=== PATIENT | male | born 1955 | race Caucasian/White ===

== ENCOUNTER 2019-06-26 16:09 | Inpatient (IN) ==
[2019-06-26] MEDS ORDERED: 0.9 % Sodium Chloride 1,000 ML IVC ONE (16:21)
--- NOTE | 2019-06-26 16:24 | Emergency Department Note ---
Disposition Clinical Impression: Light-headed, Hyponatremia, Occasional tremors Altered mental status Qualifiers: Altered mental status type: unspecified Qualified Code(s): R41.82 - Altered mental status, unspecified Disposition: Admitted As Inpatient [facility] Care Provider[facility] - Time of Disposition: 20:28 General Adult HPI - General Stated complaint: dizziness Time Seen by Provider: 06/26/19 16:13 Source: patient, EMS Mode of arrival: EMS Limitations: no limitations Nursing Notes Reviewed: Yes Vital Signs Reviewed: Yes - History of Present Illness HPI Narrative: Patient is a 63-year-old male with a past medical history including bipolar disorder on lithium, resting tremors, presenting with chief complaint of lightheadedness. The patient states presently 30 minutes prior to arrival, he got up from sitting outside and felt lightheaded. He felt like he is going to pass out and he tripped and fell. He hit his face on the ground. He denies loss of consciousness or blacking out. He has an abrasion to the right upper lip. He denies any chest pain, shortness of breath, abdominal pain, nausea or vomiting, fevers or chills, recent illnesses. He has tremors of bilateral upper extremities and states that has been going on for several years. He denies any anticoagulation use. Denies vision changes, headaches, unilateral weakness or numbness. Denies fevers, cough. - Related Data Home Medications Medication Instructions Recorded Confirmed Aspirin Enteric Coated [Aspirin EC] 81 mg PO DAILY 06/26/19 06/26/19 Cholecalciferol (D-3) [Vitamin D] 1,000 unit PO DAILY 06/26/19 06/26/19 Docusate [Colace] 100 mg PO BID 06/26/19 06/26/19 [place] Carbonate ER [Eskalith] 900 mg PO HS 06/26/19 06/26/19 [place] Carbonate ER [Lithobid] 300 mg PO DAILY 06/26/19 06/26/19 Metoprolol [Lopressor] 12.5 mg PO BID 06/26/19 06/26/19 Omeprazole [PriLOSEC] 20 mg PO BIDAC 06/26/19 06/26/19 Pravastatin Sodium [Pravachol] 40 mg PO QPM 06/26/19 06/26/19 Pyridoxine HCl [Vitamin B-6] 50 mg PO QAM 06/26/19 06/26/19 RisperiDONE MICROSPHERES 37.5 mg IM Q2W 06/26/19 06/26/19 [RisperDAL CONSTA] Vitamin E 400 unit PO QAM 06/26/19 06/26/19 Allergies Allergy/AdvReac Type Severity Reaction Status Date / Time No Known Allergies Allergy Verified 06/26/19 16:46 All systems ED: reviewed and negative except as stated. Review of Systems: As Per HPI Constitutional: Denies: fever, chills Eyes: Denies: vision change Cardiovascular: Reports: other (Lightheaded). Denies: chest pain, palpitations Respiratory: Denies: cough, dyspnea Gastrointestinal: Denies: abdominal pain, nausea, vomiting, diarrhea Musculoskeletal: Denies: back pain, neck pain Neurological: Denies: headache, weakness, numbness Past Medical History - Past Medical History Attestation: Yes The following information was validated with the patient. Source: patient Medical history: Reports: no medical history Psychiatric history: Reports: other (Bipolar disorder) - Social History Alcohol use: Reports: none Drug use: Reports: none Physical Exam - General Limitations: no limitations General appearance: alert, in no apparent distress - Head Head exam: atraumatic, normocephalic - Eye Eye exam: Present: normal appearance, PERRL, EOMI. Absent: nystagmus - ENT ENT exam: normal exam, normal oropharynx - Neck Neck exam: Present: normal inspection, trachea midline - Chest Chest inspection: Present: normal inspection, symmetric chest wall rise - Respiratory Respiratory exam: Present: normal lung sounds bilaterally. Absent: respiratory distress, wheezes - Cardiovascular Cardiovascular exam: Present: regular rate, normal rhythm, normal heart sounds - Abdominal Exam Abdominal exam: Present: soft, Non-Tender. Absent: distention - Extremities Exam Extremities exam: Present: full ROM, normal capillary refill, other (Resting tremors and shakes of bilateral upper extremities and opening and closing of the mouth intermittently). Absent: tenderness, pedal edema, calf tenderness - Neurological Exam Neurological exam: Present: alert, oriented X3, CN II-XII intact. Absent: motor sensory deficit - Expanded Neurological Exam Speech: Present: fluid speech Motor strength - LUE: 5/5 Motor strength - RUE: 5/5 Motor strength - LLE: 5/5 Motor strength - RLE: 5/5 Upper motor neuron exam: jim neglect: Absent bilaterally, pronator drift: Absent bilaterally Sensory exam upper extremity: light touch: Normal Sensory exam lower extremity: light touch: Normal - Psychiatric Psychiatric exam: Present: normal affect, normal mood - Skin Skin exam: Present: warm, dry Course Vital Signs Temperature 0 F L 06/26/19 16:18 Pulse Rate 119 06/26/19 16:18 Respiratory Rate 16 06/26/19 16:18 Blood Pressure 155/106 06/26/19 16:18 O2 Sat by Pulse Oximetry 96 06/26/19 16:18 Temperature 0 F L 06/26/19 16:18 Pulse Rate 119 06/26/19 16:18 Respiratory Rate 16 06/26/19 16:18 Blood Pressure 155/106 06/26/19 16:18 O2 Sat by Pulse Oximetry 96 06/26/19 16:18 Oxygen Delivery Oxygen Delivery Room Air Medical Decision Making - MDM Narrative Medical decision making narrative: Patient is presenting with near syncope and collapse, no loss of consciousness about 30 minutes prior to arrival. He appears dehydrated, he is mildly tachycardic, we will give him a liter of IV fluid bolus. EKG shows no acute ischemic changes. He does take lithium and we will obtain a lithium level. We will obtain electrolytes, evaluate for sources of infection, chest x-ray, CT head and cervical spine as he did hit his face on the ground without any facial tenderness or deformity. He is a mild abrasion above the right side of his upper lip below the right nostril but no active epistaxis. No loose teeth or missing teeth. He also obtain urinalysis, urine drug screen, acetaminophen, salicylate, ethanol levels, VBG, ammonia level as he does appear somewhat confused at times. He does live alone and do not know what his baseline mental status is. He is AAOx3. Patient also states he has had his tremors for several years however told Dr Ferrer that tremors started after his fall. 17:00 Patient was standing in the hallway nude. He also has increased so we will give him some Ativan prior to CT scan. 17:30 Sodium is low at 119. [place] level low. BUN/Cr within normal limits. Hyponatremia may be related to terminal carman lithium use. 19:30 CT head shows no acute intracranial abnormality. The rest of the labs reviewed. No signs of infectious etiology. Discussed with pharmacyMaurizio. He states that lithium would not cause that profound hyponatremia. Patient denies consuming much water. [place] can cause nephrogenic diabetes insipidus. Patient no longer shaking at this time. Possibility of SIADH as patient has been urinating much as well. Hospitalist paged for admission. Patient is also on risperidone which may cause SIADH as well discussing with Dr. Soriano, hospitalist who accepts admission at 20:25 - Medical Records Medical records reviewed: Yes I reviewed the patient's medical records. - Lab Data Lab results reviewed: Yes I reviewed the patient's lab results. Result diagrams: 06/26/19 16:35 06/26/19 16:35 Lab Results 06/26/19 06/26/19 06/26/19 Range/Units 16:29 16:35 16:35 WBC 14.0 H (4.3-11.1) K/mcL RBC 4.14 L (4.19-5.50) M/mcL Hgb 12.9 (12.9-16.9) g/dL Hct 37.4 L (37.5-50.1) % MCV 90.3 (83.0-100.0) fL MCH 31.2 (28.0-33.3) pg MCHC 34.5 (31.6-35.5) g/dL RDW 13.5 (11.5-14.5) % Plt Count 258 (140-400) K/mcL MPV 8.2 L (9.4-12.4) fL Immature Gran % 0.6 (0-4) % Seg Neutrophils % 79.8 % Lymphocytes % 12.0 % Monocytes % 6.7 % Eosinophils % 0.6 % Basophils % 0.3 % Neutrophils # 11.2 H (1.6-8.9) K/mcL Lymphocytes # 1.7 (0.6-4.6) K/mcL Monocytes # 0.9 (0.0-1.3) K/mcL Eosinophils # 0.1 (0.0-0.6) K/mcL Basophils # 0.0 (0.0-0.2) K/mcL ABG pH (7.32-7.45) pH Units ABG pCO2 (35-45) mmHg ABG pO2 (85-104) mmHg ABG HCO3 (21-27) mEq/L ABG Total CO2 (20-26) mEq/L ABG O2 Saturation (95-98) % ABG Base Excess (-2 to 3) mEq/L VBG pH (7.32-7.42) pH Units VBG pCO2 (41-51) mmHg VBG pO2 (25-50) mmHg VBG HCO3 (21-27) mEq/L O2 Delivery Device Inspired O2 (1-15=lpm [id number]=%) Sodium 119 L* (136-145) mEq/L Potassium 3.8 (3.5-5.1) mEq/L Chloride 87 L (98-107) mEq/L Carbon Dioxide 20 L (23-29) mEq/L BUN 12 (8-23) mg/dL Creatinine 0.81 (0.70-1.30) mg/dL Est GFR ( Amer) > 60 (> 60) Est GFR (Non-Af Amer) > 60 (> 60) BUN/Creatinine Ratio 15 (6-26) Glucose 91 (70-105) mg/dL POC Glucose (70-99) mg/dL Calculated Osmolality 247 L (280-300) Calcium 8.6 (8.6-10.3) mg/dL Magnesium 1.3 L (1.6-2.6) mg/dL Total Bilirubin 0.4 (0.3-1.0) mg/dL Direct Bilirubin 0.1 (0.0-0.2) mg/dL Indirect Bilirubin 0.3 (0.0-1.2) mg/dL AST 42 H (13-39) Units/L ALT 26 (7-52) Units/L Alkaline Phosphatase 48 (34-104) Units/L Ammonia (16-53) mcmol/L Creatine Kinase 2904 H (30-223) Units/L Troponin I < 0.03 (< 0.04) ng/mL Serum Total Protein 6.5 (6.4-8.9) g/dL Albumin 4.3 (3.5-5.7) g/dL Globulin 2.2 L (2.4-3.5) g/dL Albumin/Globulin Ratio 2.0 (1.1-2.2) TSH (0.340-5.600) mcIU/mL Urine Color Yellow (Yellow) Urine Clarity Clear (Clear) Urine pH 6.5 (5.0-8.0) pH Units Ur Specific [place] 1.008 L (1.010-1.025) Urine Protein Negative (Neg-Trace) mg/dL Urine Glucose (UA) Normal (Normal) mg/dL Urine Ketones Negative (Negative) mg/dL Urine Blood Negative (Negative) Urine Nitrite Negative (Negative) Urine Bilirubin Negative (Negative) Urine Urobilinogen Normal (Normal) mg/dL Ur Leukocyte Esterase Negative (Negative) Ur Culture Indicated? NO (NO) Urine Osmolality (300-1090) mOsm/kg Urine Creatinine mg/dL Urine Sodium mEq/L Salicylates < 2.5 L (15.0-30.0) mg/dL Urine Opiates Screen (Dqybuo=851) ng/mL Ur Buprenorphine Scrn (Cutoff=5) ng/mL Acetaminophen < 10 L (10-20) mcg/mL Ur Barbiturates Screen (Frbuep=223) ng/mL Ur Phencyclidine Scrn (Cutoff=25) ng/mL Ur Amphetamines Screen (Doqbgq=9072) ng/mL U Benzodiazepines Scrn (Iammut=141) ng/mL [place] (0.6-1.2) mEq/L Urine Cocaine Screen (Cutoff= 300) ng/mL U Marijuana (THC) Screen (Cutoff = 50) ng/mL Ur Drug Screen Interp Ethyl Alcohol < 10 (Less than 10) mg/dL 06/26/19 06/26/19 06/26/19 Range/Units 16:35 16:49 17:12 WBC (4.3-11.1) K/mcL RBC (4.19-5.50) M/mcL Hgb (12.9-16.9) g/dL Hct (37.5-50.1) % MCV (83.0-100.0) fL MCH (28.0-33.3) pg MCHC (31.6-35.5) g/dL RDW (11.5-14.5) % Plt Count (140-400) K/mcL MPV (9.4-12.4) fL Immature Gran % (0-4) % Seg Neutrophils % % Lymphocytes % % Monocytes % % Eosinophils % % Basophils % % Neutrophils # (1.6-8.9) K/mcL Lymphocytes # (0.6-4.6) K/mcL Monocytes # (0.0-1.3) K/mcL Eosinophils # (0.0-0.6) K/mcL Basophils # (0.0-0.2) K/mcL ABG pH 7.41 (7.32-7.45) pH Units ABG pCO2 26 L (35-45) mmHg ABG pO2 101 (85-104) mmHg ABG HCO3 17 L (21-27) mEq/L ABG Total CO2 17 L (20-26) mEq/L ABG O2 Saturation 98 (95-98) % ABG Base Excess -7 L (-2 to 3) mEq/L VBG pH (7.32-7.42) pH Units VBG pCO2 (41-51) mmHg VBG pO2 (25-50) mmHg VBG HCO3 (21-27) mEq/L O2 Delivery Device Cannula Inspired O2 2.0 (1-15=lpm [id number]=%) Sodium (136-145) mEq/L Potassium (3.5-5.1) mEq/L Chloride (98-107) mEq/L Carbon Dioxide (23-29) mEq/L BUN (8-23) mg/dL Creatinine (0.70-1.30) mg/dL Est GFR ( Amer) (> 60) Est GFR (Non-Af Amer) (> 60) BUN/Creatinine Ratio (6-26) Glucose (70-105) mg/dL POC Glucose 97 (70-99) mg/dL Calculated Osmolality (280-300) Calcium (8.6-10.3) mg/dL Magnesium (1.6-2.6) mg/dL Total Bilirubin (0.3-1.0) mg/dL Direct Bilirubin (0.0-0.2) mg/dL Indirect Bilirubin (0.0-1.2) mg/dL AST (13-39) Units/L ALT (7-52) Units/L Alkaline Phosphatase (34-104) Units/L Ammonia (16-53) mcmol/L Creatine Kinase (30-223) Units/L Troponin I (< 0.04) ng/mL Serum Total Protein (6.4-8.9) g/dL Albumin (3.5-5.7) g/dL Globulin (2.4-3.5) g/dL Albumin/Globulin Ratio (1.1-2.2) TSH (0.340-5.600) mcIU/mL Urine Color (Yellow) Urine Clarity (Clear) Urine pH (5.0-8.0) pH Units Ur Specific [place] (1.010-1.025) Urine Protein (Neg-Trace) mg/dL Urine Glucose (UA) (Normal) mg/dL Urine Ketones (Negative) mg/dL Urine Blood (Negative) Urine Nitrite (Negative) Urine Bilirubin (Negative) Urine Urobilinogen (Normal) mg/dL Ur Leukocyte Esterase (Negative) Ur Culture Indicated? (NO) Urine Osmolality (300-1090) mOsm/kg Urine Creatinine mg/dL Urine Sodium mEq/L Salicylates (15.0-30.0) mg/dL Urine Opiates Screen (Kwexlo=036) ng/mL Ur Buprenorphine Scrn (Cutoff=5) ng/mL Acetaminophen (10-20) mcg/mL Ur Barbiturates Screen (Gfafdz=767) ng/mL Ur Phencyclidine Scrn (Cutoff=25) ng/mL Ur Amphetamines Screen (Qaypxp=6338) ng/mL U Benzodiazepines Scrn (Kqzesn=891) ng/mL [place] 0.4 L (0.6-1.2) mEq/L Urine Cocaine Screen (Cutoff= 300) ng/mL U Marijuana (THC) Screen (Cutoff = 50) ng/mL Ur Drug Screen Interp Ethyl Alcohol (Less than 10) mg/dL 06/26/19 06/26/19 06/26/19 Range/Units 18:02 18:02 18:02 WBC (4.3-11.1) K/mcL RBC (4.19-5.50) M/mcL Hgb (12.9-16.9) g/dL Hct (37.5-50.1) % MCV (83.0-100.0) fL MCH (28.0-33.3) pg MCHC (31.6-35.5) g/dL RDW (11.5-14.5) % Plt Count (140-400) K/mcL MPV (9.4-12.4) fL Immature Gran % (0-4) % Seg Neutrophils % % Lymphocytes % % Monocytes % % Eosinophils % % Basophils % % Neutrophils # (1.6-8.9) K/mcL Lymphocytes # (0.6-4.6) K/mcL Monocytes # (0.0-1.3) K/mcL Eosinophils # (0.0-0.6) K/mcL Basophils # (0.0-0.2) K/mcL ABG pH (7.32-7.45) pH Units ABG pCO2 (35-45) mmHg ABG pO2 (85-104) mmHg ABG HCO3 (21-27) mEq/L ABG Total CO2 (20-26) mEq/L ABG O2 Saturation (95-98) % ABG Base Excess (-2 to 3) mEq/L VBG pH (7.32-7.42) pH Units VBG pCO2 (41-51) mmHg VBG pO2 (25-50) mmHg VBG HCO3 (21-27) mEq/L O2 Delivery Device Inspired O2 (1-15=lpm or71-925=%) Sodium (136-145) mEq/L Potassium (3.5-5.1) mEq/L Chloride (98-107) mEq/L Carbon Dioxide (23-29) mEq/L BUN (8-23) mg/dL Creatinine (0.70-1.30) mg/dL Est GFR ( Amer) (> 60) Est GFR (Non-Af Amer) (> 60) BUN/Creatinine Ratio (6-26) Glucose (70-105) mg/dL POC Glucose (70-99) mg/dL Calculated Osmolality (280-300) Calcium (8.6-10.3) mg/dL Magnesium (1.6-2.6) mg/dL Total Bilirubin (0.3-1.0) mg/dL Direct Bilirubin (0.0-0.2) mg/dL Indirect Bilirubin (0.0-1.2) mg/dL AST (13-39) Units/L ALT (7-52) Units/L Alkaline Phosphatase (34-104) Units/L Ammonia (16-53) mcmol/L Creatine Kinase (30-223) Units/L Troponin I (< 0.04) ng/mL Serum Total Protein (6.4-8.9) g/dL Albumin (3.5-5.7) g/dL Globulin (2.4-3.5) g/dL Albumin/Globulin Ratio (1.1-2.2) TSH (0.340-5.600) mcIU/mL Urine Color (Yellow) Urine Clarity (Clear) Urine pH (5.0-8.0) pH Units Ur Specific [place] (1.010-1.025) Urine Protein (Neg-Trace) mg/dL Urine Glucose (UA) (Normal) mg/dL Urine Ketones (Negative) mg/dL Urine Blood (Negative) Urine Nitrite (Negative) Urine Bilirubin (Negative) Urine Urobilinogen (Normal) mg/dL Ur Leukocyte Esterase (Negative) Ur Culture Indicated? (NO) Urine Osmolality 82 L (300-1090) mOsm/kg Urine Creatinine 13 mg/dL Urine Sodium 12.9 mEq/L Salicylates (15.0-30.0) mg/dL Urine Opiates Screen Negative (Pylujd=179) ng/mL Ur Buprenorphine Scrn Negative (Cutoff=5) ng/mL Acetaminophen (10-20) mcg/mL Ur Barbiturates Screen Negative (Krqdeu=502) ng/mL Ur Phencyclidine Scrn Negative (Cutoff=25) ng/mL Ur Amphetamines Screen Negative (Pztbiy=2320) ng/mL U Benzodiazepines Scrn Negative (Mdsgbg=761) ng/mL [place] (0.6-1.2) mEq/L Urine Cocaine Screen Negative (Cutoff= 300) ng/mL U Marijuana (THC) Screen Negative (Cutoff = 50) ng/mL Ur Drug Screen Interp See Below Ethyl Alcohol (Less than 10) mg/dL 06/26/19 06/26/19 06/26/19 Range/Units 18:06 18:06 18:18 WBC (4.3-11.1) K/mcL RBC (4.19-5.50) M/mcL Hgb (12.9-16.9) g/dL Hct (37.5-50.1) % MCV (83.0-100.0) fL MCH (28.0-33.3) pg MCHC (31.6-35.5) g/dL RDW (11.5-14.5) % Plt Count (140-400) K/mcL MPV (9.4-12.4) fL Immature Gran % (0-4) % Seg Neutrophils % % Lymphocytes % % Monocytes % % Eosinophils % % Basophils % % Neutrophils # (1.6-8.9) K/mcL Lymphocytes # (0.6-4.6) K/mcL Monocytes # (0.0-1.3) K/mcL Eosinophils # (0.0-0.6) K/mcL Basophils # (0.0-0.2) K/mcL ABG pH (7.32-7.45) pH Units ABG pCO2 (35-45) mmHg ABG pO2 (85-104) mmHg ABG HCO3 (21-27) mEq/L ABG Total CO2 (20-26) mEq/L ABG O2 Saturation (95-98) % ABG Base Excess (-2 to 3) mEq/L VBG pH 7.40 (7.32-7.42) pH Units VBG pCO2 34 L (41-51) mmHg VBG pO2 126 H (25-50) mmHg VBG HCO3 21 (21-27) mEq/L O2 Delivery Device Inspired O2 (1-15=lpm hs92-297=%) Sodium (136-145) mEq/L Potassium (3.5-5.1) mEq/L Chloride (98-107) mEq/L Carbon Dioxide (23-29) mEq/L BUN (8-23) mg/dL Creatinine (0.70-1.30) mg/dL Est GFR ( Amer) (> 60) Est GFR (Non-Af Amer) (> 60) BUN/Creatinine Ratio (6-26) Glucose (70-105) mg/dL POC Glucose (70-99) mg/dL Calculated Osmolality (280-300) Calcium (8.6-10.3) mg/dL Magnesium (1.6-2.6) mg/dL Total Bilirubin (0.3-1.0) mg/dL Direct Bilirubin (0.0-0.2) mg/dL Indirect Bilirubin (0.0-1.2) mg/dL AST (13-39) Units/L ALT (7-52) Units/L Alkaline Phosphatase (34-104) Units/L Ammonia 35 (16-53) mcmol/L Creatine Kinase (30-223) Units/L Troponin I (< 0.04) ng/mL Serum Total Protein (6.4-8.9) g/dL Albumin (3.5-5.7) g/dL Globulin (2.4-3.5) g/dL Albumin/Globulin Ratio (1.1-2.2) TSH 0.371 (0.340-5.600) mcIU/mL Urine Color (Yellow) Urine Clarity (Clear) Urine pH (5.0-8.0) pH Units Ur Specific [place] (1.010-1.025) Urine Protein (Neg-Trace) mg/dL Urine Glucose (UA) (Normal) mg/dL Urine Ketones (Negative) mg/dL Urine Blood (Negative) Urine Nitrite (Negative) Urine Bilirubin (Negative) Urine Urobilinogen (Normal) mg/dL Ur Leukocyte Esterase (Negative) Ur Culture Indicated? (NO) Urine Osmolality (300-1090) mOsm/kg Urine Creatinine mg/dL Urine Sodium mEq/L Salicylates (15.0-30.0) mg/dL Urine Opiates Screen (Sxrgtv=966) ng/mL Ur Buprenorphine Scrn (Cutoff=5) ng/mL Acetaminophen (10-20) mcg/mL Ur Barbiturates Screen (Qvyznt=584) ng/mL Ur Phencyclidine Scrn (Cutoff=25) ng/mL Ur Amphetamines Screen (Vflsbz=3843) ng/mL U Benzodiazepines Scrn (Yjvrbh=279) ng/mL [place] (0.6-1.2) mEq/L Urine Cocaine Screen (Cutoff= 300) ng/mL U Marijuana (THC) Screen (Cutoff = 50) ng/mL Ur Drug Screen Interp Ethyl Alcohol (Less than 10) mg/dL - Radiology Data Radiology results reviewed: Yes I reviewed the patient's radiology results. Chest X-Ray 06/26/19 17:20 IMPRESSION: Low lung volumes with bibasilar atelectasis. PA and lateral chest x-ray will be helpful for further evaluation. D/ / 06/26/2019 17:24:29 Roger Flores MD / Sari Grier Interpreting Provider: Roger Flores MD Cervical Spine CT 06/26/19 19:07 IMPRESSION: No acute abnormality of the cervical spine. Multilevel degenerative changes D/ / Jose Carlos Freedman MD / Jose Carlos Freedman MD Interpreting Provider: Jose Carlos Freedman MD Head CT 06/26/19 19:09 IMPRESSION: No acute intracranial abnormality. D/ / Nelson Allen MD / Nelson Allen MD Interpreting Provider: Nelson Allen MD - EKG Data EKG #1 EKG attestation: Yes I reviewed and interpreted this EKG. EKG results narrative: Poor baseline as the patient is tremulous. EKG was obtained at 1628 shows heart rate 101, QRS duration 106, QTC 464, sinus rhythm, normal access, no ST elevation, no ST depression, no old EKG to compare to. Attestation Statement - Attestation Attestation: I have seen this patient with the resident physician, I have personally evaluated this patient. I had reviewed the chart and document dictation by the resident physician and aM in agreement with the information documented by the resident physician. Please see documentation by the resident physician for complete chart including past medical history, family medical history, review of systems, current history and physical and laboratory and imaging studies. I was present for all procedures, provided direct supervision for all pr ocedures, was present for the entirety of all procedures and provided direct guidance during the procedures. Please see documentation by the resident physician for any procedures performed. I have reviewed all interpretations of EKGs, and reviewed all EKGs performed on patient's as well. I have also reviewed reports of imaging as provided by radiology. Patient presented emergency department with chief complaint of a near-syncopal event that started today. He states he has been otherwise at his baseline health. He does have a history of bipolar disorder but reports no medication changes, he reports she has been eating and drinking without difficulty he denies alcohol use. He states that he stood up at home today also and felt dizzy lightheaded like he was given a pass out, initially told the resident physician that he has chronic problems with a tremor, seems to deny chronic problems with a tremor to myself but endorses significant tremor since this event in the bilateral upper extremities, on repeat discussion with the patient seems to endorse that the tremor in the bilateral upper extremities is just worse than his baseline but is a poor historian in regards to this. He states that when he fell he did hit his head and landed on his right leg and his face he does not believe he was actually knocked out he denies experiencing seizure. He denies biting his tongue. He does endorse urinary frequency no other urinary symptoms he denies any pain at all. Denies chest pain shortness of breath. Denies palpitations denies abdominal pain nausea vomiting diarrhea black or b loody stool. Apart from some slight increased urination denies any other urinary symptoms denies hematuria denies unilateral numbness or weakness. States that he has never had this happen to him in the past. Reviewing his chart he has never been here before. He does typically get some care at the [place], unable to obtain any old records. Patient does report he is on lithium for bipolar disorder, but again endorses no recent changes in his medication. Denies nausea or vomiting denies headache or confusion. 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 He has an abrasion to his right upper lip region no other evidence of trauma to his head pupils are normal no midline tenderness of his cervical spine. Lungs are clear heart is regular although tachycardic, no murmurs rubs or gallops abdomen is soft and nontender. Skin is warm and dry without rash or petechiae neurologic exam is nonfocal, although he does have bilateral upper extremity tremor, but with improvement with intention. He does not have asterixis. He is able to get up and walk around. He although oriented, does not seem somewhat confused, he gets up and urinates on the floor, and walks in the hallway naked, is redirected back to his room, cannot totally really why he was doing that. He was given some Ativan for his tremor as well as for his behavior control. Patient had an IV placed he was given a bolus of IV fluids for tachycardia. Head CT showed no evidence of acute intra-cranial pathology chest x-ray showed no acute findings as interpreted by radiology. EKG was normal sinus rhythm with sinus tachycardia no evidence of acute ischemic dysrhythmia or hyperkalemia, heart rate was 101. CBC is within acceptable limits. Renal panel demonstrates hyponatremia 119, no other significant O like disturbance apart from hypomagnesemia 1.3 he was again given IV fluids a liter initially, followed by maintenance fluids, also given magnesium. The patient had a lithium level checked which was 0.4, no evidence of lithium toxicity. Patient continued to have significant frequent urination, I am concerned with the elevated amount of urination, with a low sodium that he may have some sort of SIADH, reviewed his medication list with pharmacy, does not appear that lithium should cause this you can get lithium toxicity from hyponatremia, but not typically hyponatremia from lithium, in fact lithium often more associated with diabetes insipidus and hypernatremia. Patient was admitted to the hospital for further evaluation and management, I did also check a total CPK which was mildly elevated at 2900 but no evidence of renal failure, this may be related to the fall itself. I did also check a TSH which showed no evidence to suggest acute thyroid abnormality. Total critical care time as provided by myself excluding any procedures performed evaluation and management of this patient was 30 minutes.
[2019-06-26 16:49] LABS: Bilirubin,Urine Negative (Negative); Blood,Urine Negative (Negative); Clarity,Urine Clear (Clear); Color,Urine Yellow (Yellow); Glucose,Urine (UA) Normal (Normal); Ketones,Urine Negative (Negative); Leukocyte Esterase,Urine Negative (Negative); Nitrite,Urine Negative (Negative); PH,Urine 6.5 pH Units (5.0-8.0); Protein,Urine Negative (Neg-Trace); Specific Gravity,Urine 1.008 (1.010-1.025); Urobilinogen,Urine Normal (Normal)
[2019-06-26 16:51] LABS: Basophils % 0.3 %; Eosinophils # 0.1 K/mcL (0.0-0.6); Eosinophils % 0.6 %; Hematocrit 37.4 % (37.5-50.1); Hemoglobin 12.9 g/dL (12.9-16.9); Immature Granulocytes % 0.6 % (0-4); Lymphocytes # 1.7 K/mcL (0.6-4.6); Mean Corpuscular HGB Conc 34.5 g/dL (31.6-35.5); Mean Corpuscular Hemoglobin 31.2 pg (28.0-33.3); Mean Corpuscular Volume 90.3 fL (83.0-100.0); Mean Platelet Volume 8.2 fL (9.4-12.4); Monocytes # 0.9 K/mcL (0.0-1.3); Monocytes % 6.7 %; Neutrophils # 11.2 K/mcL (1.6-8.9); Platelet Count 258 K/mcL (140-400); Red Blood Count 4.14 M/mcL (4.19-5.50); Red Cell Distribution Width 13.5 % (11.5-14.5); Segmented Neutrophils % 79.8 %
[2019-06-26] MEDS ORDERED: *HR* LORazepam 2 MG/ML VIAL IVP ONE ×2 (17:02→18:46)
[2019-06-26 17:14] LABS: ABG Base Excess -7 mEq/L (-2 to 3); ABG HCO3 17 mEq/L (21-27); ABG Oxygen Saturation 98 % (95-98); ABG PCO2 26 mmHg (35-45); ABG PH 7.41 pH Units (7.32-7.45); ABG PO2 101 mmHg (85-104); ABG TCO2 17 mEq/L (20-26)
[2019-06-26 17:33] LABS: BUN/Creatinine Ratio 15 (6-26); Blood Urea Nitrogen 12 mg/dL (8-23); Calcium 8.6 mg/dL (8.6-10.3); Carbon Dioxide 20 mEq/L (23-29); Chloride 87 mEq/L (98-107); Glucose 91 mg/dL (70-105); Osmolality,Calculated 247 (280-300); Potassium 3.8 mEq/L (3.5-5.1); Sodium 119 mEq/L (136-145); Troponin I < 0.03 ng/mL (< 0.04); eGFR For African Americans > 60 (> 60); eGFR For Non-African Americans > 60 (> 60)
[2019-06-26 18:18] LABS: Acetaminophen < 10 mcg/mL (10-20); Alanine Aminotransferase 26 Units/L (7-52); Albumin 4.3 g/dL (3.5-5.7); Alkaline Phosphatase 48 Units/L (34-104); Aspartate Amino Transferase 42 Units/L (13-39); Bilirubin,Direct 0.1 mg/dL (0.0-0.2); Bilirubin,Indirect 0.3 mg/dL (0.0-1.2); Bilirubin,Total 0.4 mg/dL (0.3-1.0); Ethanol < 10 mg/dL (Less than 10); Globulin 2.2 g/dL (2.4-3.5); Magnesium 1.3 mg/dL (1.6-2.6); Salicylate < 2.5 mg/dL (15.0-30.0); Total Protein 6.5 g/dL (6.4-8.9)
[2019-06-26 18:21] LABS: VBG HCO3 21 mEq/L (21-27); VBG PCO2 34 mmHg (41-51); VBG PO2 126 mmHg (25-50)
[2019-06-26 18:31] LABS: Creatine Kinase 2904 Units/L (30-223)
[2019-06-26] MEDS ORDERED: *HR* LORazepam 2 MG/ML VIAL ONE (18:49)
[2019-06-26 19:25] LABS: Amphetamine Screen,Urine Negative ng/mL (Cutoff=1000); Barbiturate Screen,Urine Negative ng/mL (Cutoff=200); Benzodiazepines Screen,Urine Negative ng/mL (Cutoff=200); Cannabinoid Screen,Urine Negative ng/mL (Cutoff = 50); Cocaine Screen,Urine Negative ng/mL (Cutoff= 300); Opiate Screen,Urine Negative ng/mL (Cutoff=300); Phencyclidine Screen,Urine Negative ng/mL (Cutoff=25)
[2019-06-26] MEDS ORDERED: Magnesium Oxide 400 MG TABLET PO STA (19:33)
[2019-06-26 19:40] LABS: Sodium, Urine 12.9 mEq/L
[2019-06-26] MEDS ORDERED: 0.9 % Sodium Chloride 1,000 ML IVC SCH (19:45)
--- NOTE | 2019-06-26 22:22 | Internal Med History&Physical ---
<Coleman Mitchell - Last Filed: 06/26/19 22:27> Date of Encounter: 06/26/19 Time of Encounter: 22:17 Internal Medicine - H&P: HPI Chief complaint: Presyncopal episode Admitted From: Home Plans for Post Hospital Care: Home History of present illness: Mr. Rabago is a 63 year old male with a past medical history of bipolar disorder with resting tremors at baseline, he takes lithium. Approximately one half hour prior to presentation to the [facility] ED the patient states he stood from a sitting position and became very lightheaded had a presyncopal episodes and tripped and fell forward striking his face on the ground. Patient denies any loss of consciousness or any other trauma during the event, he is noted to have a small abrasion around his nose and upper lip dentition is intact, oropharynx is clear, pupils are PERRL with EOMI, there appears to be no significant trauma to the patient's head. Cardio pulmonary auscultation is unremarkable abdomen soft nontender nondistended, no evidence of peripheral edema pulses are strong in the distal extremities. Patient is noted to have upper extremity bilateral tremors which she states is "a little worse than my baseline." Patient has no other concerns or complaints at this time he states he has no other past medical history medications or known drug allergies. In the ED the patient was noted to have a mildly elevated white count at 14.0, of significant note the patient's sodium level is 119 and his creatinine kinase is 2904. Both his serum and urine osmolality are low at 247 and 82 respectively. Toxicology screen is negative lithium level was noted to be low at 0.4. While in the ED the patient was given 2 L of fluid, he was given a total of 1 mg of Ativan as well as magnesium oxide 400 mg and 1 g of magnesium sulfate. Nephrology has been consulted. I will obtain a stat BMP to determine patient's sodium status after fluid bolus. Assessment and plan: Hyponatremia: Nephrology is consulted and is following Stat BMP after 2 L fluid bolus to assess sodium status. Guarded IV fluid hydration Presyncopal episode with fall: Head/cervical spine CT negative for acute pathology Likely secondary to electrolyte abnormalities EKG noted tests significant artifact is patient is tremulous however no ischemic change noted Troponin is negative Rhabdomyolysis: Creatine kinase is 2904 Patient is received 2 L in the ED Stat repeat BMP and CK DVT prophylaxis: EPCDs Past Med Surg Social Fam HX - Past Medical History Medical history: no medical history Additional medical history: tremors Psychiatric history: other (Bipolar disorder) - Social History Smoking Status: Never smoker Alcohol use: none Drug use: none Internal Medicine - H&P: Meds Aspirin Enteric Coated [Aspirin EC] 81 mg PO DAILY 06/26/19 [History] Cholecalciferol (D-3) [Vitamin D] 1,000 unit PO DAILY 06/26/19 [History] Docusate [Colace] 100 mg PO BID 06/26/19 [History] Brule Carbonate ER [Eskalith] 900 mg PO HS 06/26/19 [History] Brule Carbonate ER [Lithobid] 300 mg PO DAILY 06/26/19 [History] Metoprolol [Lopressor] 12.5 mg PO BID 06/26/19 [History] Omeprazole [PriLOSEC] 20 mg PO BIDAC 06/26/19 [History] Pravastatin Sodium [Pravachol] 40 mg PO QPM 06/26/19 [History] Pyridoxine HCl [Vitamin B-6] 50 mg PO QAM 06/26/19 [History] RisperiDONE MICROSPHERES [RisperDAL CONSTA] 37.5 mg IM Q2W 06/26/19 [History] Vitamin E 400 unit PO QAM 06/26/19 [History] Allergy/AdvReac Type Severity Reaction Status Date / Time No Known Allergies Allergy Verified 06/26/19 16:46 All Systems PM: A 10-system review of systems was performed and is negative for pertinent findings except as documented above in the HPI. - Constitutional Constitutional: falls, weakness - Cardiovascular Cardiovascular ROS IM: lightheadedness, syncope, no chest pain, no dyspnea - Respiratory Respiratory: no dyspnea - Gastrointestinal Gastrointestinal: no abdominal pain, no nausea, no vomiting - Musculoskeletal Musculoskeletal ROS IM: no arthralgias, no myalgias - Neurological Neurological ROS: tremor(s) - Constitutional Vitals: Temp Pulse Resp BP Pulse Ox 97.9 F 87 24 147/73 98 06/26/19 20:33 06/26/19 21:47 06/26/19 21:47 06/26/19 21:47 06/26/19 21:47 General appearance: Present: mild distress, answers questions appropriately Exam: Pulmonary initial examination the patient is sitting upright in hospital bed he is awake, alert, oriented, engaged conversation answering questions appropriately. There is an obvious bilateral upper extremity coarse tremor noted which the patient states is "a little worse than my normal". The patient is also noted to have some minor abrasions around his nose and lips were he states that he struck his face when he fell earlier today. Cardio pulmonary auscultation is unremarkable, abdomen is soft nontender nondistended, good peripheral pulses, no evidence of peripheral edema, no other signs of trauma are noted. - Eye Eye exam: Present: EOMI, normal appearance, PERRL. Absent: conjunctival inject ion, scleral icterus Pupils: Present: PERRL - Respiratory Respiratory exam: Present: CTAB - Cardiovascular Cardiovascular exam: Present: RRR, +S1, +S2. Absent: +S3, +S4 - GI/Abdominal GI/Abdominal exam: Present: normal bowel sounds, soft, no peritoneal signs. Absent: distended, firm, guarding, rebound, rigid, tenderness - Neurological Exam Neurological exam: Present: oriented X3, no focal deficits. Absent: facial droop, speech deficit Internal Med - H&P Results - Labs CBC & Chem 7: 06/26/19 16:35 06/26/19 16:35 Labs: Short CBC 06/26/19 Range/Units 16:35 WBC 14.0 H (4.3-11.1) K/mcL Hgb 12.9 (12.9-16.9) g/dL Hct 37.4 L (37.5-50.1) % Plt Count 258 (140-400) K/mcL Neutrophils # 11.2 H (1.6-8.9) K/mcL BMP 06/26/19 16:35 Sodium 119 L* Potassium 3.8 Chloride 87 L Carbon Dioxide 20 L BUN 12 Creatinine 0.81 Glucose 91 Calcium 8.6 Cardiac Enzymes 06/26/19 Range/Units 16:35 Troponin I < 0.03 (< 0.04) ng/mL Liver Function 06/26/19 Range/Units 16:35 Total Bilirubin 0.4 (0.3-1.0) mg/dL Direct Bilirubin 0.1 (0.0-0.2) mg/dL AST 42 H (13-39) Units/L ALT 26 (7-52) Units/L Alkaline Phosphatase 48 (34-104) Units/L Albumin 4.3 (3.5-5.7) g/dL Urine 06/26/19 Range/Units 16:29 Urine Color Yellow (Yellow) Urine Clarity Clear (Clear) Urine pH 6.5 (5.0-8.0) pH Units Ur Specific [place] 1.008 L (1.010-1.025) Urine Protein Negative (Neg-Trace) mg/dL Urine Glucose (UA) Normal (Normal) mg/dL - ABG Interpretation ABG results: 06/26/19 06/26/19 17:12 18:18 ABG pH 7.41 ABG pCO2 26 L ABG pO2 101 ABG HCO3 17 L ABG Total CO2 17 L ABG O2 Saturation 98 ABG Base Excess -7 L VBG pH 7.40 VBG pCO2 34 L VBG pO2 126 H VBG HCO3 21 - Impressions ITS Impressions Chest X-Ray 06/26/19 17:20 IMPRESSION: Low lung volumes with bibasilar atelectasis. PA and lateral chest x-ray will be helpful for further evaluation. D/ / 06/26/2019 17:24:29 Roger Flores MD / Sari Grier Interpreting Provider: Roger Flores MD Cervical Spine CT 06/26/19 19:07 IMPRESSION: No acute abnormality of the cervical spine. Multilevel degenerative changes D/ / Jose Carlos Freedman MD / Jose Carlos Freedman MD Interpreting Provider: Jose Carlos Freedman MD Head CT 06/26/19 19:09 IMPRESSION: No acute intracranial abnormality. D/ / Nelson Allen MD / Nelson Allen MD Interpreting Provider: Nelson Allen MD - Time Spent With Patient Total time spent is greater than 50% in coordination of care (as documented) at patient's floor/unit and/or counseling patient: <Hilborn,Bayron D - Last Filed: 06/27/19 08:00> Date of Encounter: 06/26/19 Internal Medicine - H&P: HPI History of present illness: Mr. Rabago is a 63 year old male All Systems PM: A 10-system review of systems was performed and is negative for pertinent findings except as documented above in the HPI. - Constitutional Vitals: Temp Pulse Resp BP Pulse Ox 98.0 F 92 20 134/98 94 06/27/19 07:14 06/27/19 07:14 06/27/19 07:14 06/27/19 07:14 06/27/19 07:14 Internal Med - H&P Results - Labs CBC & Chem 7: 06/26/19 16:35 06/27/19 04:18 Labs: Short CBC 06/26/19 Range/Units 16:35 WBC 14.0 H (4.3-11.1) K/mcL Hgb 12.9 (12.9-16.9) g/dL Hct 37.4 L (37.5-50.1) % Plt Count 258 (140-400) K/mcL Neutrophils # 11.2 H (1.6-8.9) K/mcL BMP 06/26/19 06/26/19 06/27/19 16:35 22:58 00:07 Sodium 119 L* 135 L D 138 Potassium 3.8 3.7 3.9 Chloride 87 L 104 107 Carbon Dioxide 20 L 22 L 23 BUN 12 10 10 Creatinine 0.81 0.76 0.74 Glucose 91 94 96 Calcium 8.6 8.8 8.6 06/27/19 04:18 Sodium 140 Potassium 4.2 Chloride 110 H Carbon Dioxide 25 BUN 9 Creatinine 0.76 Glucose 144 H Calcium 8.9 Cardiac Enzymes 06/26/19 Range/Units 16:35 Troponin I < 0.03 (< 0.04) ng/mL Liver Function 06/26/19 Range/Units 16:35 Total Bilirubin 0.4 (0.3-1.0) mg/dL Direct Bilirubin 0.1 (0.0-0.2) mg/dL AST 42 H (13-39) Units/L ALT 26 (7-52) Units/L Alkaline Phosphatase 48 (34-104) Units/L Albumin 4.3 (3.5-5.7) g/dL Urine 06/26/19 06/26/19 Range/Units 16:29 18:02 Urine Color Yellow Yellow (Yellow) Urine Clarity Clear Clear (Clear) Urine pH 6.5 6.5 (5.0-8.0) pH Units Ur Specific [place] 1.008 L < 1.005 L (1.010-1.025) Urine Protein Negative Negative (Neg-Trace) mg/dL Urine Glucose (UA) Normal Normal (Normal) mg/dL - ABG Interpretation ABG results: 06/26/19 06/26/19 17:12 18:18 ABG pH 7.41 ABG pCO2 26 L ABG pO2 101 ABG HCO3 17 L ABG Total CO2 17 L ABG O2 Saturation 98 ABG Base Excess -7 L VBG pH 7.40 VBG pCO2 34 L VBG pO2 126 H VBG HCO3 21 - Impressions ITS Impressions Chest X-Ray 06/26/19 17:20 IMPRESSION: Low lung volumes with bibasilar atelectasis. PA and lateral chest x-ray will be helpful for further evaluation. D/ / 06/26/2019 17:24:29 Roger Flores MD / Sari Grier Interpreting Provider: Roger Flores MD Cervical Spine CT 06/26/19 19:07 IMPRESSION: No acute abnormality of the cervical spine. Multilevel degenerative changes D/ / Jose Carlos Freedman MD / Jose Carlos Freedman MD Interpreting Provider: Jose Carlos Freedman MD Head CT 06/26/19 19:09 IMPRESSION: No acute intracranial abnormality. D/ / Nelson Allen MD / Nelson Allen MD Interpreting Provider: Nelson Allen MD Chest X-Ray 06/27/19 01:55 IMPRESSION: Left basilar atelectasis and/or scarring. No airspace disease suspicious for pneumonia or any other acute cardiopulmonary abnormality. D/ / Jose Daniel Love / Jose Daniel Love Interpreting Provider: Jose Daniel Love - Time Spent With Patient Total time spent is greater than 50% in coordination of care (as documented) at patient's floor/unit and/or counseling patient: - Attending Attestation I saw and evaluated the patient. I reviewed the residents note, performed my own physical examination and agree with findings and plan as documented in the residents note. Patient seen and examined on 06/27/19 at 0100. Patient presented to the ER after a fall, found to have low sodium level. Difficult to conclude if this initial sodium level was real, ER gave 1L of IV fluids, and upon recheck patient's sodium level jumped to 135. Stat repeat was ordered and level was 138. Fluids were held at that point. Patient otherwise stable, no mental status changes. Started patient on D5 Water at 250cc/hr. Nephrology consulted for further recommendations. Possibly related to lithium use, but patient's lithium level was not elevated. Patient overall poor historian. Elevated CK level as well, patient does not remember being down for extended periods of time. - General appearance: Present: cooperative, A&O X 3, pleasant, no acute dist ress, answers questions appropriately but slowly Exam: - Head Head exam: Present: normal inspection, dried blood under nostrils. - Eye Eye exam: Present: EOMI, normal appearance - Respiratory Respiratory exam: Present: CTAB. Absent: rales, respiratory distress, rhonchi, wheezes - Cardiovascular Cardiovascular exam: Present: RRR. Absent: diastolic murmur, systolic murmur - GI/Abdominal GI/Abdominal exam: Present: normal bowel sounds, soft. Absent: tenderness - Extremities Exam Extremities exam: Present: warm, radial pulses palpable and symmetrical. Absent: calf tenderness, pedal edema, tenderness - Neurological Exam Neurological exam: Present: Bilateral upper extremity tremors with intention. No tremor at rest. - Skin Skin exam: Present: dry, normal color, warm
[2019-06-26 23:26] LABS: Bilirubin,Urine Negative (Negative); Blood,Urine Negative (Negative); Clarity,Urine Clear (Clear); Color,Urine Yellow (Yellow); Glucose,Urine (UA) Normal (Normal); Ketones,Urine Negative (Negative); Leukocyte Esterase,Urine Negative (Negative); Nitrite,Urine Negative (Negative); PH,Urine 6.5 pH Units (5.0-8.0); Protein,Urine Negative (Neg-Trace); Specific Gravity,Urine < 1.005 (1.010-1.025); Urobilinogen,Urine Normal (Normal)
[2019-06-26 23:40] LABS: BUN/Creatinine Ratio 13 (6-26); Blood Urea Nitrogen 10 mg/dL (8-23); Calcium 8.8 mg/dL (8.6-10.3); Carbon Dioxide 22 mEq/L (23-29); Chloride 104 mEq/L (98-107); Glucose 94 mg/dL (70-105); Osmolality,Calculated 279 (280-300); Potassium 3.7 mEq/L (3.5-5.1); Sodium 135 mEq/L (136-145); eGFR For African Americans > 60 (> 60); eGFR For Non-African Americans > 60 (> 60)
[2019-06-27 00:42] LABS: BUN/Creatinine Ratio 14 (6-26); Blood Urea Nitrogen 10 mg/dL (8-23); Calcium 8.6 mg/dL (8.6-10.3); Carbon Dioxide 23 mEq/L (23-29); Chloride 107 mEq/L (98-107); Glucose 96 mg/dL (70-105); Osmolality,Calculated 285 (280-300); Potassium 3.9 mEq/L (3.5-5.1); Sodium 138 mEq/L (136-145); eGFR For African Americans > 60 (> 60); eGFR For Non-African Americans > 60 (> 60)
[2019-06-27] MEDS: D5% in Water 1,000 ML IVC SCH ×4 (03:34→16:25)
[2019-06-27 05:07] LABS: BUN/Creatinine Ratio 12 (6-26); Blood Urea Nitrogen 9 mg/dL (8-23); Calcium 8.9 mg/dL (8.6-10.3); Carbon Dioxide 25 mEq/L (23-29); Chloride 110 mEq/L (98-107); Glucose 144 mg/dL (70-105); Osmolality,Calculated 291 (280-300); Potassium 4.2 mEq/L (3.5-5.1); Sodium 140 mEq/L (136-145); eGFR For African Americans > 60 (> 60); eGFR For Non-African Americans > 60 (> 60)
[2019-06-27 09:27] LABS: BUN/Creatinine Ratio 11 (6-26); Blood Urea Nitrogen 9 mg/dL (8-23); Calcium 8.6 mg/dL (8.6-10.3); Carbon Dioxide 25 mEq/L (23-29); Chloride 107 mEq/L (98-107); Glucose 130 mg/dL (70-105); Osmolality,Calculated 290 (280-300); Potassium 3.7 mEq/L (3.5-5.1); Sodium 140 mEq/L (136-145); eGFR For African Americans > 60 (> 60); eGFR For Non-African Americans > 60 (> 60)
[2019-06-27] MEDS ORDERED: D5% in Lactated Ringers 500 ML IVC ONE (10:49)
[2019-06-27] MEDS ORDERED: Ringers Solution, Lactated 500 ML IVC ONE (12:00)
--- NOTE | 2019-06-27 12:52 | Internal Med Progress Note ---
Hospitalist Progress Note - Encounter Date of Encounter: 06/27/19 Time of Encounter: 09:15 - Subjective Interval History: Seen at bedside. He was admitted overnight with hyponatremia of 119, 4:30 PM.. After 2 L of IV fluid bolus, sodium went up to 135 around 10:30 PM, he was started on IV dextrose around midnight, sodium went up to 140 in the morning l abs at 4 AM. Discuss with nephrology in the morning, repeat BMP was done which showed sodium of 140. At that time, patient was given 500 mL of extra D5 water bolus. Currently patient is on 250 mL of D5 water/hr. patient denies any acute complaints at this point. Denies dysarthria, diplopia, focal weakness. Patient is alert and oriented. Denies chest pain or shortness of breath. - Exam Vitals: Temp Pulse Resp BP Pulse Ox 97.9 F 84 18 135/76 95 06/27/19 11:34 06/27/19 11:34 06/27/19 11:34 06/27/19 11:34 06/27/19 11:34 Exam: General: Alert and oriented, no physical distress, able to follow commands. HEENT: No thyromegaly, no lymphadenopathy, no discharge. Eyes: No discharge. Normal conjuctiva, no icterus Respiratory: Normal vesicular breathing, no added sounds, breathing equal in both sides. CVS: Normal heart sounds, no murmurs, regular rhthm, no edema Extremities: No peripheral edema, peripheral pulses intact. Lymph nodes: No lymphadenopathy Gastrointestinal: Soft, nontender abdomen, normal abdominal sounds. No distention noted. Genitourinary: No paravertebral tenderness. Skin: No rash, ulcers or wound. Neurological: Alert and oriented. No focal deficits, power and sensations intact in all extremities. Cranial nerves II-XII intact. - Assessment and Plan (1) Hyponatremia Current Visit: Yes Status: Acute Assessment and Plan: Sodium level was 119 at presentation. With low urine and serum osmolality, etiology seems to be polydipsia, he was given 2 L of IV fluid bolus in the emergency department. Sodium levels jumped up to 140. Currently on D5 at 50 mL per hour. Also given 500 mL of D5 water boluses after sodium of 140 around 8 a.m. No focal deficits or abnormalities on neurological exam. Inxtructed the pt to report any chane in the neurological status abruptly to the nurse. Repeat BMP, continue to monitor. Nephrology on board. Appreciate recommendations. Continue to hold lithium. (2) Bipolar disorder Current Visit: Yes Status: Acute Assessment and Plan: History of bipolar disorder, on lithium for 10 years. [place] levels low in ED Continued to hold the lithium for now considering severe hyponatremia. We will reinitiate after discussion with the nephrology. (3) Hypertension Current Visit: Yes Status: Acute Assessment and Plan: Blood pressure within normal limits. Continue metoprolol. (4) Hyperlipidemia Current Visit: Yes Status: Acute Assessment and Plan: Continue statins. (5) Occasional tremors Current Visit: Yes Status: Acute Assessment and Plan: Could be related to hyponatremia. Currently patient does not have any tremors. No interventions. - Time Spent with Patient Total time spent is greater than 50% in coordination of care (as documented) at patient's floor/unit and/or counseling patient: Internal Medicine: Result - Labs CBC & Chem 7: 06/26/19 16:35 06/27/19 08:43 Labs: Short CBC 06/26/19 Range/Units 16:35 WBC 14.0 H (4.3-11.1) K/mcL Hgb 12.9 (12.9-16.9) g/dL Hct 37.4 L (37.5-50.1) % Plt Count 258 (140-400) K/mcL Neutrophils # 11.2 H (1.6-8.9) K/mcL BMP 06/26/19 06/26/19 06/27/19 16:35 22:58 00:07 Sodium 119 L* 135 L D 138 Potassium 3.8 3.7 3.9 Chloride 87 L 104 107 Carbon Dioxide 20 L 22 L 23 BUN 12 10 10 Creatinine 0.81 0.76 0.74 Glucose 91 94 96 Calcium 8.6 8.8 8.6 06/27/19 06/27/19 04:18 08:43 Sodium 140 140 Potassium 4.2 3.7 Chloride 110 H 107 Carbon Dioxide 25 25 BUN 9 9 Creatinine 0.76 0.80 Glucose 144 H 130 H Calcium 8.9 8.6 Cardiac Enzymes 06/26/19 Range/Units 16:35 Troponin I < 0.03 (< 0.04) ng/mL Liver Function 06/26/19 Range/Units 16:35 Total Bilirubin 0.4 (0.3-1.0) mg/dL Direct Bilirubin 0.1 (0.0-0.2) mg/dL AST 42 H (13-39) Units/L ALT 26 (7-52) Units/L Alkaline Phosphatase 48 (34-104) Units/L Albumin 4.3 (3.5-5.7) g/dL Urine 06/26/19 06/26/19 Range/Units 16:29 18:02 Urine Color Yellow Yellow (Yellow) Urine Clarity Clear Clear (Clear) Urine pH 6.5 6.5 (5.0-8.0) pH Units Ur Specific [place] 1.008 L < 1.005 L (1.010-1.025) Urine Protein Negative Negative (Neg-Trace) mg/dL Urine Glucose (UA) Normal Normal (Normal) mg/dL - ABG Interpretation ABG results: ABG ABG pH 7.41 pH Units (7.32-7.45) 06/26/19 17:12 ABG pCO2 26 mmHg (35-45) L 06/26/19 17:12 ABG pO2 101 mmHg (85-104) 06/26/19 17:12 ABG O2 Saturation 98 % (95-98) 06/26/19 17:12 - Impressions Impressions Chest X-Ray 06/26/19 17:20 IMPRESSION: Low lung volumes with bibasilar atelectasis. PA and lateral chest x-ray will be helpful for further evaluation. D/ / 06/26/2019 17:24:29 Roger Flores MD / Sari Grier Interpreting Provider: Roger Flores MD Cervical Spine CT 06/26/19 19:07 IMPRESSION: No acute abnormality of the cervical spine. Multilevel degenerative changes D/ / Jose Carlos Freedman MD / Jose Carlos Freedman MD Interpreting Provider: Jose Carlos Freedman MD Head CT 06/26/19 19:09 IMPRESSION: No acute intracranial abnormality. D/ / Nelson Allen MD / Nelson Allen MD Interpreting Provider: Nelson Allen MD Chest X-Ray 06/27/19 01:55 IMPRESSION: Left basilar atelectasis and/or scarring. No airspace disease suspicious for pneumonia or any other acute cardiopulmonary abnormality. D/ / Jose Daniel Love / Jose Daniel Love Interpreting Provider: Jose Daniel Love Consult Discharge Plan - Plan
--- NOTE | 2019-06-27 14:07 | Nephrology Consult Note ---
<Wesly Collado - Last Filed: 06/27/19 17:25> Date of Encounter: 06/27/19 Time of Encounter: 10:30 (guessed) Assessment and Plan (1) Hyponatremia Status: Acute (2) Rhabdomyolysis Status: Acute Qualifiers: Qualified Code(s): T79.6XXA - Traumatic ischemia of muscle, initial encounter (3) Metabolic acidosis Status: Acute History of Present Illness - Reason for Consult Consult date: 06/27/19 - History of Present Illness Chart review Mr. Jose Carlos Rabago is a 63-year-old male with past medical history of bipolar disorder, tremor who presented to the [facility] ED on 06/26 status post lightheadedness resulting in a fall. Initial vitals significant for heart rate 119 Initial labs significant for: ABG showing CO2 at 26 and HCO3 at 17. Sodium 119. CK 8118. Low lithium level at 0.[address] and head CT read as negative for acute processes He was diagnosed with hyponatremia and given 0.9% sodium chloride 1 L. Sodium trended to 135 within 7 hours. He was then given 2 L D5 percent. The last 2 sodium levels have been 140. Nephrology was consulted for hyponatremia Interview with the patient: Feels better than when he came in. Intake: Daily meals include cereal, hot pockets, TV dinner. Close to 4 L of water as well as some milk. Denies alcohol use Output: He does urinate quite a bit. Past Med Surg Social Fam HX - Past Medical History Medical history: no medical history, DVT Additional medical history: tremors Psychiatric history: other - Past Surgical History Surgical History: no surgical history - Social History Smoking Status: Current every day smoker Smokeless Tobacco Status: No Alcohol use: none Drug use: none Medications and Allergies Aspirin Enteric Coated [Aspirin EC] 81 mg PO DAILY 06/26/19 [History] Cholecalciferol (D-3) [Vitamin D] 1,000 unit PO DAILY 06/26/19 [History] Docusate [Colace] 100 mg PO BID 06/26/19 [History] [place] Carbonate ER [Eskalith] 900 mg PO HS 06/26/19 [History] [place] Carbonate ER [Lithobid] 300 mg PO DAILY 06/26/19 [History] Metoprolol [Lopressor] 12.5 mg PO BID 06/26/19 [History] Omeprazole [PriLOSEC] 20 mg PO BIDAC 06/26/19 [History] Pravastatin Sodium [Pravachol] 40 mg PO QPM 06/26/19 [History] Pyridoxine HCl [Vitamin B-6] 50 mg PO QAM 06/26/19 [History] RisperiDONE MICROSPHERES [RisperDAL CONSTA] 37.5 mg IM Q2W 06/26/19 [History] Vitamin E 400 unit PO QAM 06/26/19 [History] Allergy/AdvReac Type Severity Reaction Status Date / Time No Known Allergies Allergy Verified 06/26/19 16:46 Review of Systems All Systems review (narrative): Admits: Dizziness Denies: Fever, weight loss, new concerning vision loss, trouble swallowing, new concerning hearing loss, chest pain, dyspnea, hemoptysis, abdominal pain, vomiting, diarrhea, hematochezia, dysuria, hematuria, syncope *Some information auto - populated into this note* Exam - Vital Signs Vital signs: Initial Vital Signs Temp Pulse Resp BP Pulse Ox 0 F L 119 16 155/106 96 06/26/19 16:18 06/26/19 16:18 06/26/19 16:18 06/26/19 16:18 06/26/19 16:18 Vital Signs - Last 8 Hours Temp Pulse Resp BP Pulse Ox 06/27/19 11:34 97.9 F 84 18 135/76 95 06/27/19 08:00 98.0 F 92 20 134/98 94 06/27/19 07:14 98.0 F 92 20 134/98 94 Intake and Output 06/26/19 06/27/19 06/27/19 23:59 07:59 15:59 Intake Total 1000 / 1000 1000 / 2480 1480 / 2480 Output Total 2880 / 4630 1750 / 4630 Balance 1000 / 1000 -1880 / -2150 -270 / -2150 Intake: IV Fluids 1000 / 1000 1000 / 2000 1000 / 2000 0.9 % Sodium Chloride 1,000 ML 1000 / 1000 @ 999 mls/hr IVC .Q1H1M ONE Rx# :[id number] Dextrose 5% 1,000 ML @ 250 mls/ 1000 / 2000 1000 / 2000 hr IVC .Q4H MARGARITA Rx#:[id number] Oral 480 / 480 Output: Catheter 2880 / 4630 1750 / 4630 Other: Meal Lunch Percent of Meal Consumed 100% Weight 81.647 kg Blood Glucose* 140 139 Additional exam: Gen.: Middle-aged male. No acute distress Skin: Turgor skin return around 2 seconds over sternum Eyes: Moist. Anicteric Cardiac: Tachycardic. S1, S2. No obvious murmurs gallops or rubs heard Respiratory: Basilar dry crackles with low pitched wheeze sound throughout posterior mendoza. Relatively clear anterior upper mendoza GI: Nontender diffusely tender : Urine in Johnson tube lucent Extremities: Capillary refill less than 2 seconds bilateral upper extremities. No bilateral lower extremity edema Neuro: Alert and oriented to person, place, time. Reflexes showed brachia radialis 3 out of 4 bilaterally. Patellar 1 out of 4 bilaterally. Achilles 2 out of 4 bilaterally. Could not elicit triceps reflexes. Psych: Taciturn but appropriate answers to questions. Pleasant and coherent. 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 Initial bicarbonate 17. -Consider RTA: Urine sodium, potassium, chloride pending #neurologic exam abnormalities -defer to primary team Results - Lab Results 06/26/19 16:35 06/27/19 16:49 Most recent lab results 06/27/19 06/27/19 04:18 08:43 Calcium 8.9 8.6 Consult Discharge Plan - Plan Instructions: Hyponatremia (GEN) Additional Instructions: Follow up with the psychiatrist. Please get BMP done next tuesday. Avoid drinking very large amounts of water, try to limit to 6132-0438 ml/day. [facility]Primary Care Provider[facility] - 07/06/19 8:30 am <Horace Posada - Last Filed: 07/08/19 22:56> Date of Encounter: 06/27/19 Exam - Vital Signs Vital signs: Initial Vital Signs Temp Pulse Resp BP Pulse Ox 0 F L 119 16 155/106 96 06/26/19 16:18 06/26/19 16:18 06/26/19 16:18 06/26/19 16:18 06/26/19 16:18 Results - Lab Results 06/26/19 16:35 06/28/19 00:40 - Attending Attestation I examined this patient and my medical decision-making was reviewed with the Resident Physician. I agree with the documented findings, disposition and treatment plan as described except to the extent set forth below. In brief; 63 y o male with PMH of bipolar d/o on lithium admitted s/p fall with lightheadedness and noted hyponatremic down to 119. Pt received 2 liters NS in the Ed with repeat sodium noted at 135 and further increasing to 140. Renal consulted for concerns for rapid sodium correction. On exam: pt is asymtomatic, NAD, lungs clear, heart S1S2, Abd soft NT/ND, Ext with no LE edema and Neuro AAOx3. Will bolus with D5W instead and continued serial sodium checks. DDAVP not needed at this time. Will follow with you closely.
[2019-06-27 14:10] LABS: BUN/Creatinine Ratio 9 (6-26); Blood Urea Nitrogen 7 mg/dL (8-23); Calcium 8.7 mg/dL (8.6-10.3); Carbon Dioxide 26 mEq/L (23-29); Chloride 107 mEq/L (98-107); Glucose 154 mg/dL (70-105); Osmolality,Calculated 293 (280-300); Potassium 3.5 mEq/L (3.5-5.1); Sodium 141 mEq/L (136-145); eGFR For African Americans > 60 (> 60); eGFR For Non-African Americans > 60 (> 60)
[2019-06-27 15:15] LABS: Potassium,Urine 16.1 mEq/L
--- NOTE | 2019-06-27 15:49 | Electrocardiograph Report ---
[address] [address] Test Date: 2019-06-26 Pat Name: Jose Carlos Rabago Department: EXAM7 Room: [facility] Gender: Supervisor Burling And Joining: : 1955 Requested By: Karma Beard Order Number: [id number] Reading MD: Erick Pagan Measurements Intervals [place] Rate: 101 P: TN: QRS: 86 QRSD: 106 T: 67 QT: 358 QTc: 464 Interpretive Statements Sinus tachycardia Borderline right axis deviation Baseine aritfact Electronically Signed On 06-27-2019 15:47:38 EDT by Erick Pagan
[2019-06-27 17:22] LABS: BUN/Creatinine Ratio 9 (6-26); Blood Urea Nitrogen 8 mg/dL (8-23); Calcium 8.2 mg/dL (8.6-10.3); Carbon Dioxide 26 mEq/L (23-29); Chloride 109 mEq/L (98-107); Glucose 113 mg/dL (70-105); Osmolality,Calculated 287 (280-300); Potassium 3.6 mEq/L (3.5-5.1); Sodium 139 mEq/L (136-145); eGFR For African Americans > 60 (> 60); eGFR For Non-African Americans > 60 (> 60)
[2019-06-28 01:30] LABS: BUN/Creatinine Ratio 10 (6-26); Blood Urea Nitrogen 9 mg/dL (8-23); Calcium 8.2 mg/dL (8.6-10.3); Carbon Dioxide 23 mEq/L (23-29); Chloride 109 mEq/L (98-107); Glucose 107 mg/dL (70-105); Osmolality,Calculated 289 (280-300); Potassium 3.6 mEq/L (3.5-5.1); Sodium 140 mEq/L (136-145); eGFR For African Americans > 60 (> 60); eGFR For Non-African Americans > 60 (> 60)
--- NOTE | 2019-06-28 05:51 | Nephrology Progress Note ---
Date of Encounter: 06/28/19 Time of Encounter: 06:15 (guessed) - Assessment and Plan (1) Hyponatremia Current Visit: Yes Status: Acute (2) Rhabdomyolysis Current Visit: Yes Status: Acute Qualifiers: Qualified Code(s): T79.6XXA - Traumatic ischemia of muscle, initial encounter (3) Metabolic acidosis Current Visit: Yes Status: Acute Subjective Interval history: Subjective Patient seen and examined at bedside. Feels good and better than yesterday. Objective PE Gen.: Middle-aged male. No acute distress Skin: Good turgor. Bruising of right hand Eyes: Moist. Anicteric Cardiac: S1, S2. No obvious murmurs gallops or rubs heard Respiratory: Basilar crackles posteriorly and worse on the right. Middle lung mendoza CTA posteriorly. Faint occasional wheeze in anterior upper mendoza. Neuro: Beason 2. Psych: Taciturn. 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 Thank you for the consult. Please reconsult for any questions. #Rhabdomyolysis Patient claims that he was not immobilized for significant period of time after his fall -Potassium WNL -4 L fluid given #Non-anion gap metabolic Acidosis ABG 06/26/19 with concomitant respiratory alkalosis indicates lowest compensated CO2 should have been 31.5 initial CO2 26. Initial bicarbonate 17. -Serum carbon dioxide WNL Objective - Vital Signs Vital signs: Vital Signs Temp Pulse Resp BP Pulse Ox 06/28/19 04:05 98.6 F 71 19 124/82 92 06/28/19 00:43 79 06/28/19 00:28 98.5 F 69 18 151/83 92 06/27/19 20:27 76 06/27/19 19:59 99.0 F 84 20 146/89 95 06/27/19 16:24 98.4 F 88 18 137/77 95 06/27/19 15:30 97 18 06/27/19 11:34 97.9 F 84 18 135/76 95 06/27/19 08:00 98.0 F 92 20 134/98 94 06/27/19 07:14 98.0 F 92 20 134/98 94 Intake and Output 06/27/19 06/27/19 06/28/19 15:59 23:59 07:59 Intake Total 1480 / 3970 1490 / 3970 Output Total 175 / 30 1999 / 6629 1000 / 1000 Balance -270 / -2660 -510 / -2660 -1000 / -1000 Intake: IV Fluids 1000 / 3250 1250 / 3250 Dextrose 5% 1,000 ML @ 250 mls/ 1000 / 3250 1250 / 3250 hr IVC .Q4H MARGARITA Rx#:[id number] Oral 480 / 720 240 / 720 Output: Catheter 175 / 30 1999 / 30 1000 / 1000 Other: Meal Lunch Dinner Percent of Meal Consumed 100% 100% Weight 81.6 kg Blood Glucose* 139 Patient Weight 06/28/19 23:59 Weight 81.6 kg - Lab 06/26/19 16:35 06/28/19 00:40 Most recent lab results 06/28/19 00:40 Calcium 8.2 L Consult Discharge Plan - Plan [facility]errals: [facility] [Primary Care Provider] -
[2019-06-28] MEDS ORDERED: Cholecalciferol (D-3) 1,000 UNIT (25MCG) TABLET PO SCH (09:00)
[2019-06-28] MEDS ORDERED: Aspirin Enteric Coated 81 MG Tablet PO SCH (09:00)
[2019-06-28] MEDS ORDERED: Pyridoxine (B-6) 50 MG TABLET PO SCH (09:00)
[2019-06-28] MEDS ORDERED: Lithium Carbonate ER 300 MG TABLET.ER PO SCH (09:00)
[2019-06-28] MEDS ORDERED: Vitamin E 200 UNIT (90MG) CAPSULE PO SCH (09:00)
[2019-06-28 10:47] VITALS: BP 140/86
--- NOTE | 2019-06-28 13:49 | Consult Note ---
Date of Encounter: 06/28/19 Time of Encounter: 13:49 Assessment & Recommendation (1) Bipolar disorder Current visit: Yes Status: Acute Assessment & Recommendation: Patient presents with history of bipolar disorder well-controlled for ~10 years wit use of lithium and long-acting risperdal. Etiology of his hyponatremia is unclear - cannot exclude medication effect and/or psychogenic polydipsia; however, consideration also for laboratory error given rapid correction in a short period of time with minimal interventions. Patient appears to have been restarted on his lithium therapy this morning, and on evaluation today, denies any symptoms associated with his psychiatric illness. At this time, recommend continuing his home medication regimen, with close outpatient followup for laboratory monitoring. Qualifiers: Active/Remission status: remission status unspecified Qualified Code(s): F31.9 - Bipolar disorder, unspecified History of Present Illness Requesting Physician: Chel Horn Reason for consult: Psychogenic polydipsia History of present illness: Mr. Rabago is a 63 year old male with a history of bipolar disorder that has been stable for many years with lithium therapy who presented to the ED for evaluation after a fall. Workup in the ED was significant for serum sodium of 119, as well as elevated creatine kinase. Subsequent urine studies were significant for osmolality of 82. Patient was administered 1L NS in the ED as well as diuretics; repeat serum sodium ~6 hours later was substantially increased at 135. Due to concerns that this could be related to his long-term use of lithium, that medication was initially held, with reinitiation of therapy this morning. Given concerns that this could be medication-induced, psychiatry consult was placed for medication recommendations. On evaluation today, patient reports that he has had good symptom control for the last 10 years, and states that his medication dose has been relatively unchanged. He denies any recent medication changes, recent illnesses, or consumption of excess fluid. He reports that he drinks four "large glasses" of water per day, which he normal for him. He denies any symptoms related to his bipolar disorder with his lithium having been held for the last 2 days, and denies any acute complaints or concerns at this time. CC: Chel Horn Past Med Surg Social Fam HX - Past Medical History Medical history: no medical history, DVT - Past Psychiatric History Psychiatric history: Reports: bipolar - Past Surgical History Surgical History: no surgical history - Social History Smoking Status: Current every day smoker Smokeless Tobacco Status: No Alcohol use: none Drug use: none Medications & Allergies Aspirin Enteric Coated [Aspirin EC] 81 mg PO DAILY 06/26/19 [History] Cholecalciferol (D-3) [Vitamin D] 1,000 unit PO DAILY 06/26/19 [History] Docusate [Colace] 100 mg PO BID 06/26/19 [History] [place] Carbonate ER [Eskalith] 900 mg PO HS 06/26/19 [History] [place] Carbonate ER [Lithobid] 300 mg PO DAILY 06/26/19 [History] Metoprolol [Lopressor] 12.5 mg PO BID 06/26/19 [History] Omeprazole [PriLOSEC] 20 mg PO BIDAC 06/26/19 [History] Pravastatin Sodium [Pravachol] 40 mg PO QPM 06/26/19 [History] Pyridoxine HCl [Vitamin B-6] 50 mg PO QAM 06/26/19 [History] RisperiDONE MICROSPHERES [RisperDAL CONSTA] 37.5 mg IM Q2W 06/26/19 [History] Vitamin E 400 unit PO QAM 06/26/19 [History] Allergy/AdvReac Type Severity Reaction Status Date / Time No Known Allergies Allergy Verified 06/26/19 16:46 Review of Systems Constitutional: Denies: fever, chills, weakness, weight change Eyes: Denies: eye pain, vision change Ears, Nose, Throat: Denies: ear pain, throat pain, dental pain, hearing loss, congestion Cardiovascular: Denies: chest pain, palpitations, dyspnea on exertion Respiratory: Denies: cough, dyspnea, wheezes Gastrointestinal: Denies: abdominal pain, nausea, vomiting, diarrhea, constipation Genitourinary male: Denies: urgency, dysuria, frequency, genital lesions Musculoskeletal: Denies: joint swelling, joint pain Integumentary: Denies: rash, lesions, pruritus Neurological: Denies: headache, weakness, numbness, memory loss Psychiatric: Denies: depression, anxiety, suicidal ideation, change in appetite, homicidal ideation Endocrine: Denies: fatigue, heat or cold intolerance Hematologic/Lymphatic: Denies: easy bruising, lymphadenopathy Allergic/Immunologic: Denies: urticaria, itchy eyes Psychiatry Exam - Constitutional Vitals: Temp Pulse Resp BP Pulse Ox 98.8 F 73 20 140/86 94 06/28/19 10:44 06/28/19 10:44 06/28/19 10:44 06/28/19 10:44 06/28/19 10:44 General appearance: age & developmentally appropriate, well-groomed, well-no urished - Musculoskeletal Strength & Tone: normal for patient (grossly normal on observation) - Psychiatric Patient Orientation: Yes Person, Yes Time, Yes Place Level of alertness: Alert, Follows commands Behavior: calm, cooperative Psychomotor activity: Increased (chronic resting tremor present) Eye Contact: Maintains Eye Contact Mood Description: Euthymic/stable Affect description: congruent with mood, full range Speech Volume: Normal Speech pattern: normal rate, normal rhythm, normal tone, fluent, spontaneous Language & Vocabulary: consistent with education Thought Process: Linear, Goal Oriented Thought Content: No Suicidal ideation, No Homicidal ideation, No Overt delusions Perceptual Disturbances: No Auditory hallucinations, No Visual hallucinations Attention Span Ability: Capable of Focused Attention Memory Description: Grossly Intact Patient Reliability: Reliable Historian Fund of knowledge: Yes abstraction ability, Yes aware of current events Intelligence Estimate: Average Judgment: Limited Insight: Partial Results - Labs Labs: Laboratory Last Values WBC 14.0 K/mcL (4.3-11.1) H 06/26/19 16:35 RBC 4.14 M/mcL (4.19-5.50) L 06/26/19 16:35 Hgb 12.9 g/dL (12.9-16.9) 06/26/19 16:35 Hct 37.4 % (37.5-50.1) L 06/26/19 16:35 MCV 90.3 fL (83.0-100.0) 06/26/19 16:35 MCH 31.2 pg (28.0-33.3) 06/26/19 16:35 MCHC 34.5 g/dL (31.6-35.5) 06/26/19 16:35 RDW 13.5 % (11.5-14.5) 06/26/19 16:35 Plt Count 258 K/mcL (140-400) 06/26/19 16:35 MPV 8.2 fL (9.4-12.4) L 06/26/19 16:35 Immature Gran % 0.6 % (0-4) 06/26/19 16:35 Seg Neutrophils % 79.8 % 06/26/19 16:35 Lymphocytes % 12.0 % 06/26/19 16:35 Monocytes % 6.7 % 06/26/19 16:35 Eosinophils % 0.6 % 06/26/19 16:35 Basophils % 0.3 % 06/26/19 16:35 Neutrophils # 11.2 K/mcL (1.6-8.9) H 06/26/19 16:35 Lymphocytes # 1.7 K/mcL (0.6-4.6) 06/26/19 16:35 Monocytes # 0.9 K/mcL (0.0-1.3) 06/26/19 16:35 Eosinophils # 0.1 K/mcL (0.0-0.6) 06/26/19 16:35 Basophils # 0.0 K/mcL (0.0-0.2) 06/26/19 16:35 ABG pH 7.41 pH Units (7.32-7.45) 06/26/19 17:12 ABG pCO2 26 mmHg (35-45) L 06/26/19 17:12 ABG pO2 101 mmHg (85-104) 06/26/19 17:12 ABG HCO3 17 mEq/L (21-27) L 06/26/19 17:12 ABG Total CO2 17 mEq/L (20-26) L 06/26/19 17:12 ABG O2 Saturation 98 % (95-98) 06/26/19 17:12 ABG Base Excess -7 mEq/L (-2 to 3) L 06/26/19 17:12 VBG pH 7.40 pH Units (7.32-7.42) 06/26/19 18:18 VBG pCO2 34 mmHg (41-51) L 06/26/19 18:18 VBG pO2 126 mmHg (25-50) H 06/26/19 18:18 VBG HCO3 21 mEq/L (21-27) 06/26/19 18:18 O2 Delivery Device Cannula 06/26/19 17:12 Inspired O2 2.0 (1-15=lpm [id number]=%) 06/26/19 17:12 Sodium 140 mEq/L (136-145) 06/28/19 00:40 Potassium 3.6 mEq/L (3.5-5.1) 06/28/19 00:40 Chloride 109 mEq/L (98-107) H 06/28/19 00:40 Carbon Dioxide 23 mEq/L (23-29) 06/28/19 00:40 BUN 9 mg/dL (8-23) 06/28/19 00:40 Creatinine 0.86 mg/dL (0.70-1.30) 06/28/19 00:40 Est GFR ( Amer) > 60 (> 60) 06/28/19 00:40 Est GFR (Non-Af Amer) > 60 (> 60) 06/28/19 00:40 BUN/Creatinine Ratio 10 (6-26) 06/28/19 00:40 Glucose 107 mg/dL (70-105) H 06/28/19 00:40 POC Glucose 139 mg/dL (70-99) H 06/27/19 11:37 Calculated Osmolality 289 (280-300) 06/28/19 00:40 Calcium 8.2 mg/dL (8.6-10.3) L 06/28/19 00:40 Magnesium 1.3 mg/dL (1.6-2.6) L 06/26/19 16:35 Total Bilirubin 0.4 mg/dL (0.3-1.0) 06/26/19 16:35 Direct Bilirubin 0.1 mg/dL (0.0-0.2) 06/26/19 16:35 Indirect Bilirubin 0.3 mg/dL (0.0-1.2) 06/26/19 16:35 AST 42 Units/L (13-39) H 06/26/19 16:35 ALT 26 Units/L (7-52) 06/26/19 16:35 Alkaline Phosphatase 48 Units/L (34-104) 06/26/19 16:35 Ammonia 35 mcmol/L (16-53) 06/26/19 18:06 Creatine Kinase 8118 Units/L (30-223) H 06/26/19 22:58 Troponin I < 0.03 ng/mL (< 0.04) 06/26/19 16:35 Serum Total Protein 6.5 g/dL (6.4-8.9) 06/26/19 16:35 Albumin 4.3 g/dL (3.5-5.7) 06/26/19 16:35 Globulin 2.2 g/dL (2.4-3.5) L 06/26/19 16:35 Albumin/Globulin Ratio 2.0 (1.1-2.2) 06/26/19 16:35 TSH 0.371 mcIU/mL (0.340-5.600) 06/26/19 18:06 Urine Color Yellow (Yellow) 06/26/19 18:02 Urine Clarity Clear (Clear) 06/26/19 18:02 Urine pH 6.5 pH Units (5.0-8.0) 06/26/19 18:02 Ur Specific [place] < 1.005 (1.010-1.025) L 06/26/19 18:02 Urine Protein Negative mg/dL (Neg-Trace) 06/26/19 18:02 Urine Glucose (UA) Normal mg/dL (Normal) 06/26/19 18:02 Urine Ketones Negative mg/dL (Negative) 06/26/19 18:02 Urine Blood Negative (Negative) 06/26/19 18:02 Urine Nitrite Negative (Negative) 06/26/19 18:02 Urine Bilirubin Negative (Negative) 06/26/19 18:02 Urine Urobilinogen Normal mg/dL (Normal) 06/26/19 18:02 Ur Leukocyte Esterase Negative (Negative) 06/26/19 18:02 Ur Culture Indicated? NO (NO) 06/26/19 18:02 Urine Osmolality 82 mOsm/kg (300-1090) L 06/26/19 18:02 Urine Creatinine 13 mg/dL 06/26/19 18:02 Urine Sodium 12.9 mEq/L 06/26/19 18:02 Urine Potassium 16.1 mEq/L 06/27/19 14:00 Urine Chloride 21 mEq/L 06/27/19 14:00 Salicylates < 2.5 mg/dL (15.0-30.0) L 06/26/19 16:35 Urine Opiates Screen Negative ng/mL (Mwlqcj=990) 06/26/19 18:02 Ur Buprenorphine Scrn Negative ng/mL (Cutoff=5) 06/26/19 18:02 Acetaminophen < 10 mcg/mL (10-20) L 06/26/19 16:35 Ur Barbiturates Screen Negative ng/mL (Jhrrwq=457) 06/26/19 18:02 Ur Phencyclidine Scrn Negative ng/mL (Cutoff=25) 06/26/19 18:02 Ur Amphetamines Screen Negative ng/mL (Tnkrph=8419) 06/26/19 18:02 U Benzodiazepines Scrn Negative ng/mL (Czwhtc=489) 06/26/19 18:02 [place] 0.4 mEq/L (0.6-1.2) L 06/26/19 16:35 Urine Cocaine Screen Negative ng/mL (Cutoff= 300) 06/26/19 18:02 U Marijuana (THC) Screen Negative ng/mL (Cutoff = 50) 06/26/19 18:02 Ur Drug Screen Interp See Below 06/26/19 18:02 Ethyl Alcohol < 10 mg/dL (Less than 10) 06/26/19 16:35 - Impressions Impressions Echocardiogram 06/27/19 09:35 Impressions: LVEF 60%. Normal LV chamber size and systolic function. Moderate concentric left ventricular hypertrophy. Normal left ventricular diastolic function. Normal right ventricular structure and function. No evidence of pulmonary hypertension. No significant valvular dysfunction. Left Ventricular Wall Motion: Rest Echo Findings All wall segments showed normal motion. Findings: Study Quality * Technically adequate exam. ECG Findings * Sinus tachycardia. Left Ventricle * LVEF 60%. * Normal LV chamber size and systolic function. * Moderate concentric left ventricular hypertrophy. * Normal left ventricular diastolic function. Right Ventricle * Normal right ventricular structure and function. Left Atrium * Normal left atrial size. Right Atrium * Normal right atrial size. Interatrial Septum * Interatrial septum not well evaluated. Aortic Valve * Trileaflet aortic valve. * No aortic regurgitation. * No aortic stenosis. * Normal aortic valve structure. Mitral Valve * Normal mitral valve structure. * No mitral regurgitation. * No mitral stenosis. Tricuspid Valve * No tricuspid stenosis. * Trace tricuspid regurgitation. * No evidence of pulmonary hypertension. * Normal tricuspid valve structure. Pulmonic Valve * Pulmonic valve not well visualized. Aorta * Normally sized aortic root. Pericardium * The pericardium appears normal. IVC * Normal IVC dimensions and inspiratory collapse. Pulmonary Artery * Normal visualized portions of the main pulmonary artery. Consult Discharge Plan - Plan Instructions: Hyponatremia (GEN) Additional Instructions: Follow up with the psychiatrist. Please get BMP done next tuesday. Avoid drinking very large amounts of water, try to limit to 4777-8607 ml/day. [facility]errals: [facility] [Primary Care Provider] - - Attending Attestation I examined this patient and my medical decision-making was reviewed with the Resident Physician. I agree with the documented findings, disposition and treatment plan as described except to the extent set forth below. Client has been stable on [place] for years so hate to change this medication. It is possible either the [place] or Psychogenic Polydipsia contributed to his hyponatermia but given how quickly it corrected suspect there was an initial lab error. Would recommend continuing the Glad[place] for now but having client follow up with his outpatient psychiatrist or PCP for frequent lab draws to make sure there are no more problems. If he does become hyponatremic again will need to look at alternative mood stabilizers like Depakote but this can be done on an outpatient basis. Call if any questions. Will sign off for now.
--- NOTE | 2019-06-28 15:02 | Discharge Summary ---
- NOTES TO OUTPATIENT PROVIDER Notes to Outpatient Provider: Came with hyponatremia, corrected rapidly, but no neurological deficits. Giving him the scripts for the BMP to monitor sodium. Close follow up with the psych. Date of Encounter: 06/28/19 Time of Encounter: 10:35 - Discharge Diagnosis (1) Hyponatremia Priority: Primary Status: Acute (2) Bipolar disorder Priority: Secondary Status: Acute Qualifiers: Active/Remission status: remission status unspecified Qualified Code(s): F31.9 - Bipolar disorder, unspecified (3) Hypertension Priority: Secondary Status: Acute Qualifiers: Hypertension type: essential hypertension Qualified Code(s): I10 - Essential (primary) hypertension (4) Hyperlipidemia Priority: Secondary Status: Acute Qualifiers: Hyperlipidemia type: unspecified Qualified Code(s): E78.5 - Hyperlipidemia, unspecified (5) Occasional tremors Priority: Secondary Status: Acute Hospital course: Mr. Rabago is a 63 year old male with a past medical history significant for bipolar disorder, currently on lithium, presented to the hospital because of occasional tremors. Patient was found to have a sodium of 119. He was given 2 liter of normal saline in the emergency department. Sodium rapidly corrected to 135, then he was given D5 water to bring the sodium down but the sodium levels do not improve and continued to trend up to 140 and remained stable daily. Nephrology was consulted. Patient did not develop any neurological deficits. Neurological exam is normal with no focal deficits. Cranial nerve function also intact. Patient denies any dizziness, diplopia, dysarthria. Is currently feeling fine. His sodium is 140 today. Etiology seems to be polydipsia. Discussed with the nephrology that the pt can be discharged. Psychiatry was consulted and recommended to continue the patient on his current medication regimen and close follow-up with a psychiatric. Discussed with the patient to schedule a follow-up with his psychiatrist. Also discussed with the patient to get a BMP done on Tuesday to evaluation for this electrolytes. Patient voiced understanding. Lab work also showed elevated creatinine kinase. Patient mentioned that he has not been very mobile lately it seems like rhabdomyolysis of most likely because of immobility. Patient's CPK improved with the IV fluids Patient is being discharged in stable condition. Continued on the lithium. Provided with a prescription of BMP. - Time Spent with Patient Total time spent providing and/or coordinating discharge services: 35 minutes - Discharge Medications Prescriptions: Continued Omeprazole [PriLOSEC] 20 mg PO BIDAC Metoprolol [Lopressor] 12.5 mg PO BID [place] Carbonate ER [Eskalith] 900 mg PO HS [place] Carbonate ER [Lithobid] 300 mg PO DAILY Docusate [Colace] 100 mg PO BID Cholecalciferol (D-3) [Vitamin D] 1,000 unit PO DAILY Aspirin Enteric Coated [Aspirin EC] 81 mg PO DAILY RisperiDONE MICROSPHERES [RisperDAL CONSTA] 37.5 mg IM Q2W Pyridoxine HCl [Vitamin B-6] 50 mg PO QAM Vitamin E 400 unit PO QAM Pravastatin Sodium [Pravachol] 40 mg PO QPM Home Medications: Aspirin Enteric Coated [Aspirin EC] 81 mg PO DAILY 06/26/19 [History] Cholecalciferol (D-3) [Vitamin D] 1,000 unit PO DAILY 06/26/19 [History] Docusate [Colace] 100 mg PO BID 06/26/19 [History] [place] Carbonate ER [Eskalith] 900 mg PO HS 06/26/19 [History] [place] Carbonate ER [Lithobid] 300 mg PO DAILY 06/26/19 [History] Metoprolol [Lopressor] 12.5 mg PO BID 06/26/19 [History] Omeprazole [PriLOSEC] 20 mg PO BIDAC 06/26/19 [History] Pravastatin Sodium [Pravachol] 40 mg PO QPM 06/26/19 [History] Pyridoxine HCl [Vitamin B-6] 50 mg PO QAM 06/26/19 [History] RisperiDONE MICROSPHERES [RisperDAL CONSTA] 37.5 mg IM Q2W 06/26/19 [History] Vitamin E 400 unit PO QAM 06/26/19 [History] Allergies/Adverse Reactions: Allergy/AdvReac Type Severity Reaction Status Date / Time No Known Allergies Allergy Verified 06/26/19 16:46 Date of admission: 06/27/19 06:00 Primary care physician: PCP ABHINAV Consults: 06/26/19 22:16 Consult to Nephrology [CONS] Stat Consulting Provider: Kidney Kandice/CARMENCITA/[place]/DE Reason for Consult: Hyponatremia, [place] use Time Notified: 22:17 Call Completed: No 06/28/19 12:41 Consult to Psychiatry [CONS] Routine Consulting Provider: Psychiatry Kandice Reason consult: Other Other reason and/or additional details: Psychoenci polydipsia Call Completed: Yes - Constitutional Vitals: Temp Pulse Resp BP Pulse Ox 98.8 F 73 20 140/86 94 06/28/19 10:44 06/28/19 10:44 06/28/19 10:44 06/28/19 10:44 06/28/19 10:44 General appearance: Present: mild distress, answers questions appropriately Exam: General: Alert and oriented, no physical distress, able to follow commands. HEENT: No thyromegaly, no lymphadenopathy, no discharge. Eyes: No discharge. Normal conjuctiva, no icterus Respiratory: Normal vesicular breathing, no added sounds, breathing equal in both sides. CVS: Normal heart sounds, no murmurs, regular rhthm, no edema Extremities: No peripheral edema, peripheral pulses intact. Lymph nodes: No lymphadenopathy Gastrointestinal: Soft, nontender abdomen, normal abdominal sounds. No distention noted. Genitourinary: No paravertebral tenderness. Skin: No rash, ulcers or wound. Neurological: Alert and oriented. No focal deficits, power and sensations intact in all extremities. Cranial nerves II-XII intact. - Patient Status Disposition: Home, Self-Care Condition: Fair Functional capacity at discharge: independent ambulation Overall status at discharge: patient is back to baseline - Discharge Instructions [facility]: [facility] Care Provider[facility] - Forms: ED Satisfaction Letter Additional Instructions: Follow up with the psychiatrist. Please get BMP done next tuesday. Avoid drinking very large amounts of water, try to limit to [id number] ml/day. - Diet and Activity Activity: increase activity as tolerated Diet: advance to your usual diet
[2019-06-28] MEDS ORDERED: Nicotine 21 MG PATCH.TD24 TD SCH (16:25)
[2019-06-28] MEDS ORDERED: Lithium Carbonate ER 450 MG TABLET.ER PO SCH (21:00)
== END 2019-06-28 15:52 | disposition home or self-care (01) | DRG 641 ==
LOC: EMEROOARM 16:09 → 2NNU 16:09 → SUATTDRO 06-27 06:00
PROVIDERS: ADMIT Internal Medicine; ATTEND Internal Medicine

== ENCOUNTER 2022-02-24 18:21 | Inpatient (IN) ==
[2022-02-24] MEDS ORDERED: *HR* LORazepam 2 MG/ML VIAL IVP ONE (18:58)
[2022-02-24 19:36] LABS: Bilirubin,Urine Negative (Negative); Blood,Urine Negative (Negative); Clarity,Urine Clear (Clear); Color,Urine Colorless (Yellow); Glucose,Urine (UA) Normal (Normal); Ketones,Urine Negative (Negative); Leukocyte Esterase,Urine Negative (Negative); Nitrite,Urine Negative (Negative); Protein,Urine Negative (Neg-Trace); Specific Gravity,Urine 1.007 (1.010-1.025); Urobilinogen,Urine Normal (Normal)
[2022-02-24 19:45] LABS: Amphetamine Screen,Urine Negative ng/mL (Cutoff=1000); Barbiturate Screen,Urine Negative ng/mL (Cutoff=200); Benzodiazepines Screen,Urine Negative ng/mL (Cutoff=200); Cannabinoid Screen,Urine Negative ng/mL (Cutoff = 50); Cocaine Screen,Urine Negative ng/mL (Cutoff= 300); Opiate Screen,Urine Negative ng/mL (Cutoff=300); Phencyclidine Screen,Urine Negative ng/mL (Cutoff=25)
[2022-02-24 19:50] LABS: Basophils # 0.1 K/mcL (0.0-0.2); Basophils % 0.6 %; Eosinophils # 0.2 K/mcL (0.0-0.6); Eosinophils % 2.9 %; Hemoglobin 13.3 g/dL (12.9-16.9); Immature Granulocytes % 0.1 % (0-4); Lymphocytes # 2.2 K/mcL (0.6-4.6); Lymphocytes % 27.6 %; Mean Corpuscular HGB Conc 30.9 g/dL (31.6-35.5); Mean Corpuscular Hemoglobin 30.8 pg (28.0-33.3); Mean Corpuscular Volume 99.5 fL (83.0-100.0); Mean Platelet Volume 8.3 fL (9.4-12.4); Monocytes # 0.6 K/mcL (0.0-1.3); Monocytes % 7.9 %; Neutrophils # 4.8 K/mcL (1.6-8.9); Platelet Count 327 K/mcL (140-400); Red Blood Count 4.32 M/mcL (4.19-5.50); Red Cell Distribution Width 14.5 % (11.5-14.5); Segmented Neutrophils % 60.9 %; White Blood Count 7.8 K/mcL (4.3-11.1)
[2022-02-24 19:57] LABS: INR 1.2; Prothrombin Time 13.5 Seconds (9.4-12.1)
[2022-02-24 20:00] LABS: Activated Partial Thrombo Time 31.3 Seconds (26.0-36.0)
[2022-02-24 20:12] LABS: Alanine Aminotransferase 22 Units/L (7-52); Albumin/Globulin Ratio 1.4 (1.1-2.2); Alkaline Phosphatase 75 Units/L (34-104); Aspartate Amino Transferase 24 Units/L (13-39); BUN/Creatinine Ratio 13 (6-26); Bilirubin,Direct 0.1 mg/dL (0.0-0.2); Bilirubin,Indirect 0.6 mg/dL (0.0-1.0); Bilirubin,Total 0.7 mg/dL (0.3-1.0); Blood Urea Nitrogen 13 mg/dL (8-23); Calcium 9.4 mg/dL (8.6-10.3); Carbon Dioxide 27 mEq/L (23-29); Chloride 116 mEq/L (98-107); Creatine Kinase 456 Units/L (30-223); Ethanol < 10 mg/dL (Less than 10); Globulin 2.9 g/dL (2.4-3.5); Glucose 95 mg/dL (70-105); Osmolality,Calculated 312 (280-300); Potassium 3.3 mEq/L (3.5-5.1); Sodium 151 mEq/L (136-145); Total Protein 6.9 g/dL (6.4-8.9); eGFR For African Americans > 60 (> 60); eGFR For Non-African Americans > 60 (> 60)
[2022-02-24 20:13] LABS: Troponin I < 0.03 ng/mL (< 0.04)
[2022-02-24] MEDS ORDERED: Naloxone 0.4 MG/ML INJ IVP PRN (22:30)
[2022-02-24] MEDS ORDERED: D5% in 0.45% NACL 1,000 ML IVC SCH (22:30)
[2022-02-24] MEDS ORDERED: D5% in Water 1,000 ML IVC SCH (22:45)
[2022-02-24 23:24] LABS: Adenovirus Not Detected (Not Detect); Bordetella Pertussis Not Detected (Not Detect); Chlamydophila pneumoniae Not Detected (Not Detect); Coronavirus 229E Not Detected (Not Detect); Coronavirus HKU1 Not Detected (Not Detect); Coronavirus NL63 Not Detected (Not Detect); Coronavirus OC43 Not Detected (Not Detect); Human Metapneumovirus Not Detected (Not Detect); Human Rhinovirus/Enterovirus Not Detected (Not Detect); Influenza A Subtype 2009 H1 Not Detected (Not Detect); Influenza B Not Detected (Not Detect); Mycoplasma pneumoniae Not Detected (Not Detect); Parainfluenza Virus 1 Not Detected (Not Detect); Parainfluenza Virus 2 Not Detected (Not Detect); Parainfluenza Virus 3 Not Detected (Not Detect); Parainfluenza Virus 4 Not Detected (Not Detect); Respiratory Syncytial Virus Not Detected (Not Detect); SARS-CoV-2 Not Detected (Not Detect)
[2022-02-25 05:32] LABS: BUN/Creatinine Ratio 12 (6-26); Blood Urea Nitrogen 11 mg/dL (8-23); Calcium 9.2 mg/dL (8.6-10.3); Carbon Dioxide 25 mEq/L (23-29); Chloride 114 mEq/L (98-107); Glucose 92 mg/dL (70-105); Osmolality,Calculated 303 (280-300); Potassium 3.2 mEq/L (3.5-5.1); Sodium 147 mEq/L (136-145); eGFR For African Americans > 60 (> 60); eGFR For Non-African Americans > 60 (> 60)
[2022-02-25] MEDS ORDERED: Gadolinium Contrast Agent (WT Based) IV PRN (08:29)
[2022-02-25 08:37] LABS: Hematocrit 40.5 % (37.5-50.1); Hemoglobin 12.9 g/dL (12.9-16.9); Mean Corpuscular HGB Conc 31.9 g/dL (31.6-35.5); Mean Corpuscular Volume 97.4 fL (83.0-100.0); Mean Platelet Volume 8.4 fL (9.4-12.4); Platelet Count 323 K/mcL (140-400); Red Blood Count 4.16 M/mcL (4.19-5.50); White Blood Count 8.8 K/mcL (4.3-11.1)
[2022-02-25 08:54] LABS: BUN/Creatinine Ratio 11 (6-26); Blood Urea Nitrogen 10 mg/dL (8-23); Carbon Dioxide 23 mEq/L (23-29); Chloride 113 mEq/L (98-107); Glucose 107 mg/dL (70-105); Magnesium 2.1 mg/dL (1.6-2.6); Osmolality,Calculated 298 (280-300); Phosphorous 3.3 mg/dL (2.7-4.5); Potassium 3.3 mEq/L (3.5-5.1); Sodium 144 mEq/L (136-145); eGFR For African Americans > 60 (> 60); eGFR For Non-African Americans > 60 (> 60)
[2022-02-25] MEDS ORDERED: *HR* LORazepam 2 MG/ML VIAL IVP ONE (09:01)
[2022-02-25] MEDS ORDERED: GADOBUTROL 30 MMOL/30 ML VIAL IVP ONE (09:55)
[2022-02-25] MEDS: *HR* Heparin 5,000 UNIT/ML VIAL SQ SCH (18:19)
[2022-02-25 19:41] LABS: Folate 18.3 ng/mL (3.0-16.0)
[2022-02-26] MEDS ORDERED: *HR* LORazepam 2 MG/ML VIAL IVP ONE (03:04)
[2022-02-26 05:43] LABS: Hematocrit 42.6 % (37.5-50.1); Hemoglobin 13.5 g/dL (12.9-16.9); Mean Corpuscular HGB Conc 31.7 g/dL (31.6-35.5); Mean Corpuscular Hemoglobin 30.9 pg (28.0-33.3); Mean Corpuscular Volume 97.5 fL (83.0-100.0); Mean Platelet Volume 8.5 fL (9.4-12.4); Platelet Count 316 K/mcL (140-400); Red Blood Count 4.37 M/mcL (4.19-5.50); White Blood Count 6.8 K/mcL (4.3-11.1)
[2022-02-26 06:13] LABS: BUN/Creatinine Ratio 11 (6-26); Blood Urea Nitrogen 10 mg/dL (8-23); Calcium 9.4 mg/dL (8.6-10.3); Carbon Dioxide 23 mEq/L (23-29); Chloride 120 mEq/L (98-107); Glucose 97 mg/dL (70-105); Magnesium 2.4 mg/dL (1.6-2.6); Osmolality,Calculated 309 (280-300); Phosphorous 3.8 mg/dL (2.7-4.5); Potassium 3.9 mEq/L (3.5-5.1); Sodium 150 mEq/L (136-145); eGFR For African Americans > 60 (> 60); eGFR For Non-African Americans > 60 (> 60)
[2022-02-26] MEDS: *HR* Heparin 5,000 UNIT/ML VIAL SQ SCH ×2 (07:01→16:34)
[2022-02-26] MEDS ORDERED: Sennosides/Docusate Sodium TABLET PO PRN (08:42)
[2022-02-26] MEDS ORDERED: Lithium Carbonate ER 300 MG TABLET.ER PO SCH (09:00)
[2022-02-26] MEDS: *HR* LORazepam 1 MG TABLET PO SCH ×3 (09:20→23:47)
[2022-02-26] MEDS: Aspirin Enteric Coated 81 MG Tablet PO SCH (09:21)
[2022-02-26] MEDS: hydroCHLOROthiazide 25 MG TABLET PO SCH (09:22)
[2022-02-26] MEDS: D5% in Water 1,000 ML IVC SCH ×2 (09:33→23:47)
[2022-02-26 15:25] LABS: BUN/Creatinine Ratio 11 (6-26); Blood Urea Nitrogen 11 mg/dL (8-23); Calcium 10.1 mg/dL (8.6-10.3); Carbon Dioxide 23 mEq/L (23-29); Chloride 120 mEq/L (98-107); Glucose 104 mg/dL (70-105); Osmolality,Calculated 312 (280-300); Potassium 3.7 mEq/L (3.5-5.1); Sodium 151 mEq/L (136-145); eGFR For African Americans > 60 (> 60); eGFR For Non-African Americans > 60 (> 60)
[2022-02-26] MEDS ORDERED: Lithium Carbonate ER 450 MG TABLET.ER PO SCH (21:00)
[2022-02-27] MEDS: *HR* LORazepam 1 MG TABLET PO SCH ×4 (02:10→20:57)
[2022-02-27 06:18] LABS: Hematocrit 43.1 % (37.5-50.1); Hemoglobin 13.4 g/dL (12.9-16.9); Mean Corpuscular HGB Conc 31.1 g/dL (31.6-35.5); Mean Corpuscular Hemoglobin 30.5 pg (28.0-33.3); Mean Platelet Volume 8.7 fL (9.4-12.4); Platelet Count 315 K/mcL (140-400); Red Cell Distribution Width 14.1 % (11.5-14.5); White Blood Count 9.7 K/mcL (4.3-11.1)
[2022-02-27] MEDS: *HR* Heparin 5,000 UNIT/ML VIAL SQ SCH ×2 (06:34→18:09)
[2022-02-27 06:52] LABS: BUN/Creatinine Ratio 11 (6-26); Blood Urea Nitrogen 13 mg/dL (8-23); Calcium 9.1 mg/dL (8.6-10.3); Carbon Dioxide 26 mEq/L (23-29); Chloride 107 mEq/L (98-107); Glucose 103 mg/dL (70-105); Magnesium 2.1 mg/dL (1.6-2.6); Osmolality,Calculated 290 (280-300); Phosphorous 4.1 mg/dL (2.7-4.5); Potassium 3.4 mEq/L (3.5-5.1); Sodium 140 mEq/L (136-145); eGFR For African Americans > 60 (> 60); eGFR For Non-African Americans > 60 (> 60)
[2022-02-27] MEDS: hydroCHLOROthiazide 25 MG TABLET PO SCH (08:50)
[2022-02-27] MEDS: Aspirin Enteric Coated 81 MG Tablet PO SCH (08:50)
[2022-02-27] MEDS: D5% in Water 1,000 ML IVC SCH (13:07)
[2022-02-28] MEDS: *HR* LORazepam 1 MG TABLET PO SCH ×4 (02:22→21:25)
[2022-02-28] MEDS: *HR* Heparin 5,000 UNIT/ML VIAL SQ SCH ×2 (05:34→17:52)
[2022-02-28] MEDS: D5% in Water 1,000 ML IVC SCH ×3 (05:34→21:23)
[2022-02-28] MEDS: Aspirin Enteric Coated 81 MG Tablet PO SCH (09:24)
[2022-02-28] MEDS: hydroCHLOROthiazide 25 MG TABLET PO SCH (09:25)
[2022-02-28 09:36] LABS: BUN/Creatinine Ratio 15 (6-26); Blood Urea Nitrogen 18 mg/dL (8-23); Calcium 8.8 mg/dL (8.6-10.3); Carbon Dioxide 27 mEq/L (23-29); Chloride 104 mEq/L (98-107); Glucose 125 mg/dL (70-105); Osmolality,Calculated 287 (280-300); Potassium 3.2 mEq/L (3.5-5.1); Sodium 137 mEq/L (136-145); eGFR For African Americans > 60 (> 60); eGFR For Non-African Americans > 60 (> 60)
[2022-02-28] MEDS ORDERED: Acetaminophen 325 MG TABLET PO PRN (21:36)
[2022-02-28] MEDS ORDERED: Nicotine 2 MG GUM BC PRN (21:37)
[2022-03-01] MEDS: *HR* LORazepam 1 MG TABLET PO SCH ×2 (03:24→09:19)
[2022-03-01] MEDS: *HR* Heparin 5,000 UNIT/ML VIAL SQ SCH (05:12)
[2022-03-01 07:07] VITALS: BP 122/70; PULSE 88; TEMP 98.3; O2SAT 96
[2022-03-01] MEDS: hydroCHLOROthiazide 25 MG TABLET PO SCH (09:15)
[2022-03-01] MEDS: Aspirin Enteric Coated 81 MG Tablet PO SCH (09:17)
[2022-03-01 09:41] LABS: BUN/Creatinine Ratio 14 (6-26); Blood Urea Nitrogen 15 mg/dL (8-23); Calcium 8.7 mg/dL (8.6-10.3); Carbon Dioxide 26 mEq/L (23-29); Chloride 101 mEq/L (98-107); Glucose 188 mg/dL (70-105); Osmolality,Calculated 282 (280-300); Potassium 3.2 mEq/L (3.5-5.1); Sodium 133 mEq/L (136-145); eGFR For African Americans > 60 (> 60); eGFR For Non-African Americans > 60 (> 60)
[2022-03-01] MEDS: D5% in Water 1,000 ML IVC SCH (14:12)
== END 2022-03-01 12:50 | disposition home or self-care (01) | DRG 640 ==
LOC: 3NENU 18:21 → EMEROOARM 18:21 → SUATTDRO 22:34 → 3NENU 02-25 00:28 → SUATTDRO 02-26 18:43
PROVIDERS: ADMIT Internal Medicine; ATTEND Student in an Organized Health Care Education/Training Program